=== PATIENT | male | born 1970 | race Two or more races ===

== ENCOUNTER 2016-10-27 09:48 | Emergency (ER) | payer SELFPAY ==
[~2016-10-27] VITALS: Ht 177.8 cm; Wt 136.1 kg
[~2016-10-27 09:48] MED LIST: ASPI325T11 PO; BENZ100C PO; DOXY100T PO; FENO54TA PO; FLUT12AE IH; FLUT9.9S NS; IBUP-1027 PO; IPRA4AER IH; METO25TA4 PO; PROAIR HFA8.5 GM IH
[2016-10-27 12:00] VITALS: BP 141/82
--- NOTE | 2016-10-27 12:53 | RAD ---
EXAM: Chest, 2 views. HISTORY: Cough. COMPARISON: 10/20/2016. FINDINGS: Frontal and lateral views of the chest are obtained. There is no infiltrate, effusion or pneumothorax. The heart is normal in size. IMPRESSION: No acute pulmonary finding.
[2016-10-27] MEDS ORDERED: IPRATRPIUM/ALBUTEROL 0.5/2.5MG 3 ML NEBU. NEB ONE (13:00)
[2016-10-27] MEDS ORDERED: BENZONATATE 100 MG CAPSULE. PO ONE (13:00)
[2016-10-27] MEDS ORDERED: PREDNISONE 20 MG TABLET PO ONE (13:00)
[2016-10-27] MEDS ORDERED: PRED50TA PO (13:46)
[2016-10-27] MEDS ORDERED: CLAR500T PO (13:46)
[2016-10-27] MEDS ORDERED: PROAIR RESPICL90 MCG IH (13:46)
[2016-10-27] MEDS ORDERED: PROM118S3 PO (13:46)
--- NOTE | 2016-10-27 13:47 | PHYS DOC ---
Past Medical History Past Medical History: Arthritis, Asthma, High Cholesterol, Hypertension Past Surgical History: No Surgical History Alcohol Use: None Drug Use: None Adult General Chief Complaint Chief Complaint: COUGH HPI HPI Patient is a 46 year old male with history of asthma, hypertension, high cholesterol, who presents today with a productive cough with green sputum, sore throat, shortness of breath intermittently for the last 3 weeks. Patient denies any fever. Patient himself is requesting antibiotics. He states he was seen in the ED on October 20, 2016 for the same complaints and the given cough medicine and breathing treatments which he states are not helping. Patient states he has subjective fevers at home. Review of Systems Review of Systems Constitutional: Subjective fevers Eyes: Denies change in visual acuity, redness, or eye pain [] HENT: sore throat [] Respiratory: Cough and shortness of breath [] Cardiovascular: No additional information not addressed in HPI [] GI: Denies abdominal pain, nausea, vomiting, bloody stools or diarrhea [] : Denies dysuria or hematuria [] Musculoskeletal: Denies back pain or joint pain [] Integument: Denies rash or skin lesions [] Neurologic: Denies headache, focal weakness or sensory changes [] Endocrine: Denies polyuria or polydipsia [] Current Medications Current Medications Current Medications Medications (Trade) Dose Ordered Sig/Jhon Start Time Stop Time Status Last Admin Dose Admin Albuterol/ Ipratropium (Duoneb) 3 ml 1X ONCE 10/27/16 13:00 10/27/16 13:01 DC 10/27/16 13:02 3 ML Benzonatate (Tessalon Perle) 100 mg 1X ONCE 10/27/16 13:00 10/27/16 13:01 DC 10/27/16 12:55 100 MG Prednisone (Prednisone) 60 mg 1X ONCE 10/27/16 13:00 10/27/16 13:01 DC 10/27/16 12:56 60 MG Allergies Allergies Allergies Coded Allergies Type Severity Reaction Last Updated Verified No Known Drug Allergies 10/30/13 No Physical Exam Physical Exam Constitutional: Well developed, well nourished, no acute distress, non-toxic appearance. [] HENT: Normocephalic, atraumatic, bilateral external ears normal, oropharynx moist, no oral exudates, nose normal. [] Eyes: PERRLA, EOMI, conjunctiva normal, no discharge. [] Neck: Normal range of motion, no tenderness, supple, no stridor. [] Cardiovascular:Heart rate regular rhythm, no murmur [] Lungs & Thorax: Bilateral breath sounds clear to auscultation [] Abdomen: Bowel sounds normal, soft, no tenderness, no masses, no pulsatile masses. [] Skin: Warm, dry, no erythema, no rash. [] Back: No tenderness, no CVA tenderness. [] Extremities: No tenderness, no cyanosis, no clubbing, ROM intact, no edema. [] Neurologic: Alert and oriented X 3, normal motor function, normal sensory function, no focal deficits noted. [] Psychologic: Affect normal, judgement normal, mood normal. [] Current Patient Data Vital Signs Vital Signs Date Time Temp Pulse Resp B/P Pulse Ox O2 Delivery O2 Flow Rate FiO2 10/27/16 13:02 Room Air 10/27/16 12:00 98.2 72 22 141/82 96 98.2 EKG EKG [] Radiology/Procedures Radiology/Procedures [] Course & Med Decision Making Course & Med Decision Making Pertinent Labs and Imaging studies reviewed. (See chart for details) Patient is in the ED with a productive cough, shortness of breath, for the last 3 weeks. He was seen in the ED on October 20, 2016 with the same complaints. Chest x-ray interpreted by radiologist is negative for any acute findings. O2 sats are 96% on room air. He is in no distress. He was given a DuoNeb treatment and started on prednisone. Patient has been sick for 3 weeks. Patient himself is requesting antibiotics stating his symptoms are gone on for too long. He was given a prescription for clarithromycin, albuterol treatments, prednisone for 4 more days, and codeine with promethazine. He is to follow-up with his own PCP in the next 7 days. Dragon Disclaimer Dragon Disclaimer This electronic medical record was generated, in whole or in part, using a voice recognition dictation system. Departure Departure Impression: Primary Impression: URI (upper respiratory infection) Additional Impressions: Acute bronchitis Fever Disposition: 01 HOME, SELF-CARE Condition: STABLE Referrals: ZELDA VALENZUELA MD (PCP) Follow-up with your own doctor in the next 7 days Patient Instructions: Acute Bronchitis, [id number], Upper Respiratory Infection, Adult Additional Instructions: You were seen with symptoms consistent with an acute bronchitis. Use the prescribed medicines as ordered. Follow-up with your doctor in one week. Come back to the emergency room if symptoms worsen. Scripts Promethazine/Phenyleph/Codeine (Promethazine Vc-Codeine Syrup)473 Ml Syrup5 Ml PO Q6HRS #100 ML Prov:DEVENDRA FLORES APRN 10/27/16 Clarithromycin 500 Mg Tablet1 Tab PO BID #14 TAB Prov:DEVENDRA FLORES APRN 10/27/16 Prednisone 50 Mg Tablet1 Tab PO DAILY #4 TAB Prov:DEVENDRA FLORES APRN 10/27/16 Albuterol Sulfate (Proair Respiclick)90 Mcg Aer.pow.ba1 Puff IH PRN Q6HRS PRN SHORTNESS OF BREATH #1 INHALER Prov:DEVENDRA FLORES APRN 10/27/16 Problem Qualifiers Primary Impression: URI (upper respiratory infection) URI type: unspecified URI Qualified Code: J06.9 - Acute upper respiratory infection, unspecified Additional Impressions: Acute bronchitis Bronchitis organism: unspecified organism Qualified Code: J20.9 - Acute bronchitis, unspecified Fever Fever type: unspecified Qualified Code: R50.9 - Fever, unspecified DEVENDRA FLORES LM Oct 27, 2016 13:47
== END 2016-10-27 14:00 | disposition home or self-care (01) ==
LOC: ER 09:48
DX: J06.9 Acute upper respiratory infection, unspecified (principal); J20.9 Acute bronchitis, unspecified; R50.9 Fever, unspecified; J45.909 Unspecified asthma, uncomplicated; I10 Essential (primary) hypertension; E78.00 Pure hypercholesterolemia, unspecified; M19.90 Unspecified osteoarthritis, unspecified site
CPT/HCPCS: 71020; 94250; 94640; 99284; J7512; J7620

== ENCOUNTER 2016-11-10 20:11 | Emergency (ER) | payer MEDICAID, OTHER ==
[~2016-11-10] VITALS: Ht 180.3 cm; Wt 136.1 kg
[~2016-11-10 20:11] MED LIST changes: +CLAR500T PO; +PRED50TA PO; +PROAIR RESPICL90 MCG IH; +PROM118S3 PO
[2016-11-10 20:21] VITALS: BP 167/119
[2016-11-10] MEDS ORDERED: FLUT9.9S NS (21:02)
[2016-11-10] MEDS ORDERED: PROAIR RESPICL90 MCG IH (21:02)
--- NOTE | 2016-11-10 21:02 | PHYS DOC ---
Past Medical History Past Medical History: Arthritis, Asthma, High Cholesterol, Hypertension Past Surgical History: No Surgical History Alcohol Use: None Drug Use: None Adult General Chief Complaint Chief Complaint: COUGH HPI HPI Patient is a 46 year old male with history of asthma hypertension high cholesterol who presents today with coughing, productive in nature with greenish sputum, nasal congestion that began 3 weeks ago. Patient was seen in the ED 2016 with similar complaints, he was also seen in the ED on October 27, 2016 with similar complaints and was given antibiotics. Patient has had 2 negative x-rays in the last 25 days. He is in the ED with 2 other family members with similar complaints. Patient denies any fever. Review of Systems Review of Systems Constitutional: Denies fever or chills [] Eyes: Denies change in visual acuity, redness, or eye pain [] HENT: nasal congestion Respiratory: Productive cough Cardiovascular: No additional information not addressed in HPI [] GI: Denies abdominal pain, nausea, vomiting, bloody stools or diarrhea [] : Denies dysuria or hematuria [] Musculoskeletal: Denies back pain or joint pain [] Integument: Denies rash or skin lesions [] Neurologic: Denies headache, focal weakness or sensory changes [] Endocrine: Denies polyuria or polydipsia [] Allergies Allergies Allergies Coded Allergies Type Severity Reaction Last Updated Verified No Known Drug Allergies 10/30/13 No Physical Exam Physical Exam Constitutional: Well developed, well nourished, no acute distress, non-toxic appearance. [] HENT: Normocephalic, atraumatic, bilateral external ears normal, oropharynx moist, no oral exudates, nose normal. [] Eyes: PERRLA, EOMI, conjunctiva normal, no discharge. [] Neck: Normal range of motion, no tenderness, supple, no stridor. [] Cardiovascular:Heart rate regular rhythm, no murmur [] Lungs & Thorax: Bilateral breath sounds clear to auscultation [] Abdomen: Bowel sounds normal, soft, no tenderness, no masses, no pulsatile masses. [] Skin: Warm, dry, no erythema, no rash. [] Back: No tenderness, no CVA tenderness. [] Extremities: No tenderness, no cyanosis, no clubbing, ROM intact, no edema. [] Neurologic: Alert and oriented X 3, normal motor function, normal sensory function, no focal deficits noted. [] Psychologic: Affect normal, judgement normal, mood normal. [] Current Patient Data Vital Signs Vital Signs Date Time Temp Pulse Resp B/P Pulse Ox O2 Delivery O2 Flow Rate FiO2 11/10/16 20:21 98.0 94 18 96 Room Air 98.0 EKG EKG [] Radiology/Procedures Radiology/Procedures [] Course & Med Decision Making Course & Med Decision Making Pertinent Labs and Imaging studies reviewed. (See chart for details) As noted previously this patient is in the ED with a productive cough and nasal congestion for 3 weeks. Patient was seen in the ED on October 20 for same symptoms as well as 2016 for same symptoms and had negative x-rays both times. He is in no distress. Symptoms are viral. Discharge him today with albuterol treatments and Flonase. Discharged with Tessalon Perlgarret. Instructed follow up with his own PCP in the next 7 days. He was provided return precautions and discharged in stable condition. Dragon Disclaimer Dragon Disclaimer This electronic medical record was generated, in whole or in part, using a voice recognition dictation system. Departure Departure Impression: Primary Impression: Cough Additional Impressions: Acute viral bronchitis Upper respiratory infection Disposition: HOME, SELF-CARE Condition: STABLE Referrals: ZELDA VALENZUELA MD (PCP) Follow-up with your own doctor in one week Patient Instructions: Acute Bronchitis, Upper Respiratory Infection, Adult Additional Instructions: You were seen with symptoms consistent of a viral bronchitis and upper respiratory infection. Take the prescribed medicines as ordered. Follow-up with your own doctor in one week. Come back to the emergency room if symptoms worsen. Scripts Fluticasone Propionate (Flonase Allergy Relief)9.9 Ml [place].susp2 Sprays NS DAILY #1 BOTTLE Prov:DEVENDRA FLORES APRN 11/10/16 Albuterol Sulfate (Proair Respiclick)90 Mcg Aer.pow.ba1 Puff IH PRN Q6HRS PRN SHORTNESS OF BREATH #1 INHALER Prov:DEVENDRA FLORES APRN 11/10/16 Problem Qualifiers Additional Impressions: Upper respiratory infection URI type: unspecified URI Qualified Code: J06.9 - Acute upper respiratory infection, unspecified DEVENDRA FLORES APRN Nov 10, 2016 21:02
== END 2016-11-10 21:10 | disposition home or self-care (01) ==
LOC: ER 20:11
DX: J20.8 Acute bronchitis due to other specified organisms (principal); J06.9 Acute upper respiratory infection, unspecified; J45.909 Unspecified asthma, uncomplicated; I10 Essential (primary) hypertension; E78.00 Pure hypercholesterolemia, unspecified; M19.90 Unspecified osteoarthritis, unspecified site
CPT/HCPCS: 99283

== ENCOUNTER → 2017-01-07 | Outpatient (CLI) | payer OTHER ==
--- NOTE | 2017-01-07 16:38 | KCIC ---
PROCEDURE MR of the right knee HISTORY Right knee pain, chronic. Pain is anteromedial. TECHNIQUE Standard noncontrast images are obtained. COMPARISON None FINDINGS Degenerative tear of the medial meniscus with extrusion of tissue into the coronary recess. No evidence of a lateral meniscal tear. The anterior and posterior cruciate ligaments are intact. Medial collateral ligament demonstrates proximal scarring without acute tear. Iliotibial band unremarkable. Fibular collateral ligament, biceps femoris tendon and popliteus tendon are intact. Extensor mechanism is intact. Small joint effusion. No evidence of osteochondral loose body. Motion degradation may limit accuracy of articular cartilage exam, but there is at least moderate chondromalacia at the medial compartment and at least mild lateral compartment chondromalacia. Severe chondromalacia at the patella and at least moderate chondromalacia at the femoral trochlea. No bone lesion. No acute fracture. Mild subcutaneous edema. No significant Lemon cyst. IMPRESSION 1. Medial meniscal tear. 2. Primary osteoarthritis. Electronically signed by: Orlando Rae MD (Jan 07, 2017 16:37:06)
--- NOTE | 2017-01-07 16:57 | KCIC ---
PROCEDURE MR of the left knee HISTORY Left knee pain. Pain is chronic. Pain is anteromedial. TECHNIQUE Standard noncontrast images are obtained. COMPARISON FINDINGS Sshb-cn-czvvtzva motion degradation. Degenerative tear of the medial meniscus. Meniscus is extruded into the coronary recess. No evidence of a lateral meniscal tear. The anterior and the posterior cruciate ligaments are intact. Medial collateral ligament is intact. Iliotibial band unremarkable. Fibular collateral ligament, biceps femoris tendon and popliteus tendon are intact. Trace joint fluid. No evidence of osteochondral loose body. At least moderate chondromalacia at the medial joint. At least mild lateral compartment chondromalacia. Severe chondromalacia of the patella and at the lower femoral trochlea. No acute fracture or aggressive bone destruction. No significant Lemon cyst. There is a cyst or ganglion along the posteromedial knee. This may be associated with the meniscal tear. IMPRESSION 1. Medial meniscal tear, with displacement and parameniscal cyst. 2. Primary osteoarthritis. Electronically signed by: Orlando Rea MD (Jan 07, 2017 16:55:40)
== END | disposition home or self-care (01) ==
LOC: KCIC MRI 15:15
PROVIDERS: ATTEND Orthopaedic Surgery Sports Medicine
DX: M25.562 Pain in left knee (principal); M17.12 Unilateral primary osteoarthritis, left knee
CPT/HCPCS: 73721

== ENCOUNTER 2017-09-09 08:57 | Emergency (ER) | payer BC, OTHER ==
[~2017-09-09] VITALS: Ht 177.8 cm; Wt 136.1 kg
[~2017-09-09 08:57] MED LIST changes: +ALBU2.5V5 NEB; +ATOR10TA60 PO; +FLUT16SP NS; +FLUT1DIS3 IH; +IPRA3AMP NEB; +METO50TA6 PO; +OMEP20TA63 PO
[2017-09-09] MEDS ORDERED: IPRATRPIUM/ALBUTEROL 0.5/2.5MG 3 ML NEBU. NEB ONE (09:30)
[2017-09-09] MEDS ORDERED: methylPREDNISolone SOD SUCC PF 125 MG/2 ML VIAL. IV ONE (09:30)
--- NOTE | 2017-09-09 09:31 | PHYS DOC ---
Past Medical History Past Medical History: Asthma, High Cholesterol, Hypertension, Other Additional Past Medical Histor: HEYDI KNEE PAIN Past Surgical History: No Surgical History Alcohol Use: None Drug Use: None Adult General Chief Complaint Chief Complaint: ASTHMA HPI HPI Patient is a 47 year old male presents to the emergency department with a month history of cough, congestion, fever and wheezing. He had been seen by his PCP and placed on Cipro and duoneb with minimal relief. Patient presents today with increase SOA and wheezing, fever and elevated BP. Patient denies lower leg swelling, denies chest pain, denies productive cough. Review of Systems Review of Systems Constitutional: fever Eyes: Denies change in visual acuity, redness, or eye pain [] HENT: Denies nasal congestion or sore throat [] Respiratory: cough and shortness of breath [] Cardiovascular: No additional information not addressed in HPI [] GI: Denies abdominal pain, nausea, vomiting, bloody stools or diarrhea [] : Denies dysuria or hematuria [] Musculoskeletal: Denies back pain or joint pain [] Integument: Denies rash or skin lesions [] Neurologic: Denies headache, focal weakness or sensory changes [] Endocrine: Denies polyuria or polydipsia [] All other systems were reviewed and found to be within normal limits, except as documented in this note. Current Medications Current Medications Current Medications Medications (Trade) Dose Ordered Sig/Jhon Start Time Stop Time Status Last Admin Dose Admin Albuterol/ Ipratropium (Duoneb) 3 ml 1X ONCE 09/09/17 09:30 09/09/17 09:31 DC 09/09/17 10:03 3 ML Methylprednisolone Sodium Succinate (SOLU-Medrol 125MG VIAL) 125 mg 1X ONCE 09/09/17 09:30 09/09/17 09:31 DC 09/09/17 09:45 125 MG Allergies Allergies Allergies Coded Allergies Type Severity Reaction Last Updated Verified No Known Drug Allergies 10/30/13 No Physical Exam Physical Exam Constitutional: Well developed, well nourished, no acute distress, non-toxic appearance. [] HENT: Normocephalic, atraumatic, bilateral external ears normal, oropharynx moist, no oral exudates, nose normal. [] Eyes: PERRLA, EOMI, conjunctiva normal, no discharge. [] Neck: Normal range of motion, no tenderness, supple, no stridor. [] Cardiovascular:Heart rate regular rhythm, no murmur [] Lungs & Thorax: Bilateral breath sounds wheezes noted Back: No tenderness, no CVA tenderness. [] Extremities: No tenderness, no cyanosis, no clubbing, ROM intact, no edema. [] Neurologic: Alert and oriented X 3, normal motor function, normal sensory function, no focal deficits noted. [] Psychologic: Affect normal, judgement normal, mood normal. [] Current Patient Data Vital Signs Vital Signs Date Time Temp Pulse Resp B/P (MAP) Pulse Ox O2 Delivery O2 Flow Rate FiO2 09/09/17 10:05 95 Room Air 09/09/17 09:08 98.1 89 18 185/98 (127) 98.1 Lab Values Laboratory Tests Test 09/09/17 09:33 09/09/17 09:36 Influenza Type A Antigen Negative (NEGATIVE) Influenza Type B Antigen Negative (NEGATIVE) White Blood Count 6.4 x10^3/uL (4.0-11.0) Red Blood Count 5.15 x10^6/uL (4.30-5.70) Hemoglobin 14.8 g/dL (13.0-17.5) Hematocrit 44.2 % (39.0-53.0) Mean Corpuscular Volume 86 fL (79-100) Mean Corpuscular Hemoglobin 29 pg (25-35) Mean Corpuscular Hemoglobin Concent 34 g/dL (31-37) Red Cell Distribution Width 13.3 % (11.5-14.5) Platelet Count 193 x10^3/uL (140-400) Neutrophils (%) (Auto) 44 % (31-73) Lymphocytes (%) (Auto) 37 % (24-48) Monocytes (%) (Auto) 14 % (0-9) H Eosinophils (%) (Auto) 4 % (0-3) H Basophils (%) (Auto) 1 % (0-3) Neutrophils # (Auto) 2.8 x10^3uL (1.8-7.7) Lymphocytes # (Auto) 2.4 x10^3/uL (1.0-4.8) Monocytes # (Auto) 0.9 x10^3/uL (0.0-1.1) Eosinophils # (Auto) 0.2 x10^3/uL (0.0-0.7) Basophils # (Auto) 0.0 x10^3/uL (0.0-0.2) Sodium Level 137 mmol/L (136-145) Potassium Level 4.0 mmol/L (3.5-5.1) Chloride Level 101 mmol/L (98-107) Carbon Dioxide Level 27 mmol/L (21-32) Anion Gap 9 (6-14) Blood Urea Nitrogen 15 mg/dL (8-26) Creatinine 1.0 mg/dL (0.7-1.3) Estimated GFR (Cockcroft-Gault) 79.8 BUN/Creatinine Ratio 15 (6-20) Glucose Level 104 mg/dL (70-99) H Calcium Level 9.1 mg/dL (8.5-10.1) Total Bilirubin 0.4 mg/dL (0.2-1.0) Aspartate Amino Transferase (AST) 20 U/L (15-37) Alanine Aminotransferase (ALT) 32 U/L (16-63) Alkaline Phosphatase 83 U/L (46-116) FW-Muh-K-Type Natriuretic Peptide 6 pg/mL (0-124) Total Protein 7.5 g/dL (6.4-8.2) Albumin 3.8 g/dL (3.4-5.0) Albumin/Globulin Ratio 1.0 (1.0-1.7) Laboratory Tests 09/09/17 09:36 Laboratory Tests 09/09/17 09:36 EKG EKG EKG completed at 0928 with SR noted HR [address] Sandoval[] Radiology/Procedures Radiology/Procedures [] Course & Med Decision Making Course & Med Decision Making Pertinent Labs and Imaging studies reviewed. (See chart for details) [address] Barrow in regards to patient being admitted into the hospital as he has been on Cipro 1 month ago and continue to have respiratory problems. Dr Barrow recommends that this patient be sent home on doxycycline and prednisone with followup on Tuesday. Patients O2 sat on RA 95% with BP slightly elevated. 1053 Spoke with patient in regards to being discharged home with the above medications. Patient was recommended to followup with primary care provider on Tuesday. Patient was provided with signs and symptoms to return to the emergency department. All questions and concerns have been answered at the bedside. I've spoken with the patient and/or caregivers. I've explained the patient's condition, diagnosis and treatment plan based on information available to me at this time. I've answered the patient's and/or caregivers questions and addressed any concerns. The patient and/or caregivers have a good understanding the patient's diagnosis, condition and treatment plan as can be expected at this point. Vital signs have been stabilized. The patient's condition is stable for discharge from the emergency department. The patient will pursue further outpatient evaluation with her primary care provider or other designated consulting physician as outlined in the discharge instructions. Patient and/or caregivers are agreeable to this plan of care and follow-up instructions have been explained in detail. The patient and/or caregivers have received these instructions in written format and expressed understanding of these discharge instructions. The patient and her caregivers are aware that if any significant change in condition or worsening of symptoms should prompt him to immediately return to this of the closest emergency department.~ If an emergent department is not readily available I would encourage him to call 911. Yves Disclaimer Dragon Disclaimer This electronic medical record was generated, in whole or in part, using a voice recognition dictation system. Departure Departure Impression: Primary Impression: CAP (community acquired pneumonia) Disposition: HOME, SELF-CARE Condition: STABLE Referrals: ZELDA VALENZUELA MD (PCP) Patient Instructions: Pneumonia, Adult, [id number] Additional Instructions: Activity as tolerated Medication as prescribed Tylenol or Ibuprofen for fever, chills, or generalized body aches Continue with your nebulizer treatments as prescribed Drink plenty of fluids Followup with your primary care provider Tuesday Return to emergency department as needed for signs and symptoms that become worse. Scripts Prednisone (PREDNISONE) 20 Mg Tablet 40 MG PO DAILY for 7 Days, #14 TAB Prov: FILIPPO BOSWELL APRN 09/09/17 Doxycycline Hyclate (DOXYCYCLINE HYCLATE) 100 Mg Capsule 1 CAP PO BID, #20 CAP Prov: FILIPPO BOSWELL APRN 09/09/17 Problem Qualifiers Primary Impression: CAP (community acquired pneumonia) Laterality: unspecified laterality Qualified Codes: J18.9 - Pneumonia, unspecified organism FILIPPO BOSWELL APRN Sep 09, 2017 09:31
--- NOTE | 2017-09-09 09:54 | EKG ---
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
[2017-09-09 09:57] LABS: BASO % 1 % (0-3); EOS % 4 % (0-3); HEMATOCRIT 44.2 % (39.0-53.0); HEMOGLOBIN 14.8 g/dL (13.0-17.5); LYMPH # 2.4 x10^3/uL (1.0-4.8); LYMPH % 37 % (24-48); MEAN CORPUSCULAR HEMOGLOBIN 29 pg (25-35); MEAN CORPUSCULAR HGB CONC 34 g/dL (31-37); MEAN CORPUSCULAR VOLUME 86 fL (79-100); MONO % 14 % (0-9); NEUT % 44 % (31-73); PLATELET COUNT 193 x10^3/uL (140-400); RED BLOOD COUNT 5.15 x10^6/uL (4.30-5.70); RED CELL DISTRIBUTION WIDTH 13.3 % (11.5-14.5); WHITE BLOOD COUNT 6.4 x10^3/uL (4.0-11.0)
[2017-09-09 09:58] LABS: CALCIUM 9.1 mg/dL (8.5-10.1); GFR 79.8
[2017-09-09 10:04] LABS: ALBUMIN 3.8 g/dL (3.4-5.0); TOTAL BILIRUBIN 0.4 mg/dL (0.2-1.0); TOTAL PROTEIN 7.5 g/dL (6.4-8.2)
--- NOTE | 2017-09-09 10:15 | RAD ---
EXAM: Chest 2 views. HISTORY: Chest pain, shortness of breath, cough. COMPARISON: None. FINDINGS: Frontal and lateral views of the chest are obtained. There is mild atelectasis or infiltrate in the right cardiophrenic angle. There is no pneumothorax or pleural effusion. The heart is not enlarged. IMPRESSION: 1. Mild atelectasis or infiltrate in the right cardiophrenic angle.
[2017-09-09 10:16] LABS: OBC FLU VALID
[2017-09-09] MEDS ORDERED: DOXY100C2 PO (10:58)
[2017-09-09] MEDS ORDERED: PRED20TA PO (10:58)
[2017-09-09 11:36] VITALS: BP 133/74
== END 2017-09-09 11:38 | disposition home or self-care (01) ==
LOC: ER 08:57
DX: J18.9 Pneumonia, unspecified organism (principal); J45.909 Unspecified asthma, uncomplicated; E78.00 Pure hypercholesterolemia, unspecified; I10 Essential (primary) hypertension
CPT/HCPCS: 36415; 71020; 80053; 83880; 85025; 87804; 93005; 96374; 99285; J2930; J7620

== ENCOUNTER 2018-05-06 03:53 | Inpatient (IN) | payer OTHER ==
[2018-05-06] MEDS ORDERED: dilTIAZem IV PUSH 25 MG/5 ML VIAL (04:05)
[2018-05-06] MEDS: NITROGLYCERIN SUBLINGUAL 0.4 MG BOTTLE OF 25. SL (04:12)
[2018-05-06] MEDS: dilTIAZem IV PUSH 25 MG/5 ML VIAL IVP ×2 (04:14→04:20)
[2018-05-06 04:17] LABS: ADD MAN DIFF? NO
[2018-05-06 04:20] LABS: BASO # 0.1 x10^3/uL (0.0-0.2); BASO % 1 % (0-3); EOS # 0.2 x10^3/uL (0.0-0.7); EOS % 3 % (0-3); HEMOGLOBIN 15.8 g/dL (13.0-17.5); LYMPH # 3.4 x10^3/uL (1.0-4.8); LYMPH % 43 % (24-48); MEAN CORPUSCULAR HEMOGLOBIN 30 pg (25-35); MEAN CORPUSCULAR HGB CONC 34 g/dL (31-37); MEAN CORPUSCULAR VOLUME 86 fL (79-100); MONO # 0.8 x10^3/uL (0.0-1.1); MONO % 10 % (0-9); NEUT # 3.6 x10^3uL (1.8-7.7); NEUT % 44 % (31-73); PLATELET COUNT 188 x10^3/uL (140-400); RED BLOOD COUNT 5.35 x10^6/uL (4.30-5.70); RED CELL DISTRIBUTION WIDTH 13.3 % (11.5-14.5)
[2018-05-06] MEDS: dilTIAZem INJ 125 MG in IV DEXTROSE 5% 100ML 100 ML IV ×2 (04:29→17:34)
[2018-05-06 04:32] LABS: ANION GAP 7 (6-14); BLOOD UREA NITROGEN 13 mg/dL (8-26); CALCIUM 8.9 mg/dL (8.5-10.1); CARBON DIOXIDE 30 mmol/L (21-32); CHLORIDE 102 mmol/L (98-107); CREATININE 1.1 mg/dL (0.7-1.3); GFR 71.1; GLUCOSE 119 mg/dL (70-99); POTASSIUM 4.4 mmol/L (3.5-5.1); SODIUM 139 mmol/L (136-145)
[2018-05-06 04:41] LABS: TROPONINI < 0.017 ng/mL (0.000-0.055)
[2018-05-06 04:43] LABS: NT-PRO BNP 12 pg/mL (0-124)
[2018-05-06] MEDS ORDERED: ACETAMINOPHEN 325 MG TABLET. PO (04:45)
[2018-05-06] MEDS ORDERED: MORPHINE SULFATE 4 MG/ML DISP.SYRIN. IV (04:45)
[2018-05-06] MEDS: MORPHINE SULFATE 4 MG/ML DISP.SYRIN. IV (04:45)
[2018-05-06] MEDS ORDERED: ONDANSETRON PF 4 MG/2 ML VIAL. IV (04:45)
[2018-05-06] MEDS ORDERED: NITROGLYCERIN SUBLINGUAL 0.4 MG BOTTLE OF 25. SL (04:45)
[2018-05-06] MEDS: IV NORMAL SALINE 1000ML BAG 1,000 ML IV (05:00)
[2018-05-06] MEDS: ANTI-COAG MONITOR BY PHARMACY. MC ×2 (06:44→09:24)
[2018-05-06] MEDS: HEPARIN for IV BOLUS 10,000 UNIT/10 ML VIAL. IV (06:44)
[2018-05-06] MEDS: HEPARIN 25,000UTS/500ML PREMIX 500 ML IV (06:47)
[2018-05-06 07:48] LABS: INR 0.9 (0.8-1.1); PARTIAL THROMBOPLASTIN TIME 28 SEC (24-38)
[2018-05-06] MEDS: BUDESONIDE 0.5 MG/2 ML NEBU. NEB ×4 (12:00→19:38)
[2018-05-06] MEDS: ALBUTEROL SULFATE 2.5 MG/3 ML NEBU. NEB ×3 (12:00→19:38)
[2018-05-06] MEDS: CETIRIZINE HCL 10 MG TABLET. PO (12:47)
[2018-05-06] MEDS: ASPIRIN ENTERIC COATED 325 MG TABLET.DR. PO (12:47)
[2018-05-06] MEDS: FLUTICASONE 50MCG/NASAL SPRAY 16GM BOTTLE. NS (13:01)
[2018-05-06] MEDS: METOPROLOL TART IMMED RELEASE 50 MG TABLET. PO ×2 (15:53→21:23)
[2018-05-06] MEDS ORDERED: dilTIAZem INJ 125 MG in IV DEXTROSE 5% 100ML 100 ML IV (17:15)
[2018-05-06] MEDS: MONTELUKAST SODIUM 10 MG TABLET. PO (21:23)
[2018-05-06] MEDS: ATORVASTATIN CALCIUM 20 MG TABLET PO (21:23)
[2018-05-06] MEDS: APIXABAN 5 MG TABLET. PO (21:23)
[2018-05-07] MEDS: ALBUTEROL SULFATE 2.5 MG/3 ML NEBU. NEB ×3 (08:30→16:14)
[2018-05-07] MEDS: BUDESONIDE 0.5 MG/2 ML NEBU. NEB (08:30)
[2018-05-07] MEDS: APIXABAN 5 MG TABLET. PO (08:58)
[2018-05-07] MEDS: CETIRIZINE HCL 10 MG TABLET. PO (08:58)
[2018-05-07] MEDS: DIGOXIN 125 MCG TABLET. PO (08:58)
[2018-05-07] MEDS: ASPIRIN ENTERIC COATED 325 MG TABLET.DR. PO (08:58)
[2018-05-07] MEDS: METOPROLOL TART IMMED RELEASE 50 MG TABLET. PO (08:59)
[2018-05-07] MEDS: FLUTICASONE 50MCG/NASAL SPRAY 16GM BOTTLE. NS (09:00)
[2018-05-07] MEDS: ANTI-COAG MONITOR BY PHARMACY. MC (13:09)
== END 2018-05-07 18:53 | disposition home or self-care (01) | DRG 309 ==
LOC: ER 03:53 → 2 SOUTH 04:30
DX: I48.0 Paroxysmal atrial fibrillation (principal); Z68.42 Body mass index [BMI] 45.0-49.9, adult; E66.9 Obesity, unspecified; E78.00 Pure hypercholesterolemia, unspecified; E78.5 Hyperlipidemia, unspecified; G47.33 Obstructive sleep apnea (adult) (pediatric); I10 Essential (primary) hypertension; M19.90 Unspecified osteoarthritis, unspecified site; J45.909 Unspecified asthma, uncomplicated; Z83.3 Family history of diabetes mellitus; Z82.49 Family history of ischemic heart disease and other diseases of the circulatory system; Z79.82 Long term (current) use of aspirin; Z79.899 Other long term (current) drug therapy
CPT/HCPCS: 36415; 71045; 80048; 83880; 84484; 85025; 85520; 85610; 85730; 93005; 93306; 94640; 94760; 96365; 96375; 99285; 99285-25; J1644; J2270; J3490; J7030; J7613; J7626

== ENCOUNTER → 2019-01-02 | Outpatient (CLI) | payer OTHER ==
[2018-05-07 15:16] VITALS: BP 142/86
[~2019-01-02] MED LIST changes: +ALBU2.5V8 IH; +APIX5TAB PO; +ASPI325T8 PO; +ASPI81TA50 PO; +ATOR20TA58 PO; +AZIT1PAC PO; +CETI10TA16 PO; +DIGO125T PO; +DILT180C29 PO; +DOXY100C2 PO; +ERGO500027 PO; +HYDR12.575 PO; +IBUP-1060 PO; -IPRA3AMP NEB; +IPRA3AMP29 NEB; +MONT10TA9 PO; +OMEP20CA10 PO; +PRED-220 PO; +PRED20TA PO; -PROAIR HFA8.5 GM IH; +TRAM-48 PO; +vit d PO
[2019-01-02 11:31] LABS: BASO # 0.1 x10^3/uL (0.0-0.2); BASO % 1 % (0-3); EOS # 0.3 x10^3/uL (0.0-0.7); EOS % 3 % (0-3); HEMATOCRIT 44.7 % (39.0-53.0); HEMOGLOBIN 14.8 g/dL (13.0-17.5); LYMPH # 3.3 x10^3/uL (1.0-4.8); LYMPH % 35 % (24-48); MEAN CORPUSCULAR HEMOGLOBIN 28 pg (25-35); MEAN CORPUSCULAR HGB CONC 33 g/dL (31-37); MEAN CORPUSCULAR VOLUME 85 fL (79-100); MONO % 10 % (0-9); NEUT # 4.9 x10^3uL (1.8-7.7); NEUT % 51 % (31-73); PLATELET COUNT 194 x10^3/uL (140-400); RED BLOOD COUNT 5.25 x10^6/uL (4.30-5.70); RED CELL DISTRIBUTION WIDTH 13.1 % (11.5-14.5); WHITE BLOOD COUNT 9.5 x10^3/uL (4.0-11.0)
[2019-01-02 11:58] LABS: ALBUMIN 3.7 g/dL (3.4-5.0); CALCIUM 8.9 mg/dL (8.5-10.1); CREATININE 0.9 mg/dL (0.7-1.3); GFR 89.7; POTASSIUM 4.1 mmol/L (3.5-5.1)
== END | disposition home or self-care (01) ==
LOC: SURGPAT 10:17
PROVIDERS: ATTEND Surgery
DX: Z01.818 Encounter for other preprocedural examination (principal); K42.0 Umbilical hernia with obstruction, without gangrene
CPT/HCPCS: 36415; 80048; 82040; 85025

== ENCOUNTER 2019-01-08 08:02 | Day surgery (SDC) | payer OTHER ==
[~2019-01-08] VITALS: Ht 175.3 cm; Wt 144.2 kg
[~2019-01-08 08:02] MED LIST changes: +HYDROmorphone 2 MG/ML VIAL IV PRN; +IV RINGERS,LACTATED 1000ML 1,000 ML IV SCH; +LIDOCAINE 1% PF 2 ML VIAL. ID PRN; +ONDANSETRON PF 4 MG/2 ML VIAL. IV PRN; +PROCHLORPERAZINE 10 MG/2 ML VIAL. IV PRN; -TRAM-48 PO; +TRANEXAMIC ACID 1,000 MG in IV NORMAL SALINE 50ML 50 ML INJ ONE; +ceFAZolin SODIUM 3 GM in IV DEXTROSE 5% 100ML 100 ML IV PRN; +fentaNYL PF VIAL 100 MCG/2 ML VIAL IV PRN
[2019-01-08] MEDS ORDERED: DEXAMETHASONE SOD PHOS 20 MG/5 ML VIAL. ONE (08:35)
[2019-01-08] MEDS ORDERED: PROPOFOL 20 ML IV ONE (08:35)
[2019-01-08] MEDS ORDERED: LIDOCAINE 2% PF 5 ML VIAL. ONE (08:35)
[2019-01-08] MEDS ORDERED: ONDANSETRON PF 4 MG/2 ML VIAL. ONE (08:35)
[2019-01-08] MEDS ORDERED: ROCURONIUM 50 MG/5 ML VIAL. ONE (08:37)
[2019-01-08] MEDS ORDERED: fentaNYL PF VIAL 100 MCG/2 ML VIAL ONE (08:37)
[2019-01-08] MEDS ORDERED: SUCCINYLCHOLINE 200 MG/10 ML VIAL. ONE (08:37)
[2019-01-08] MEDS ORDERED: BUPIVAC MPF-EPI 0.5%-1:200000 30 ML VIAL. ONE (08:40)
[2019-01-08] MEDS ORDERED: PHENYLEPHRINE in 0.9% NACL PF 1 MG/10 ML SYRINGE. IV ONE (10:29)
[2019-01-08] MEDS ORDERED: NEOSTIGMINE METHYLSULFATE 5 MG/5 ML SYRINGE. ONE (10:39)
[2019-01-08] MEDS ORDERED: GLYCOPYRROLATE 1 MG/5 ML VIAL. ONE (10:39)
[2019-01-08] MEDS ORDERED: SEVOFLURANE 31 TO 60 MINUTES. IH ONE (10:56)
--- NOTE | 2019-01-08 11:02 | DISCH ---
DISCHARGE INSTRUCTIONS Condition on Discharge Condition on Discharge: Stable Activity After Discharge Activity Instructions for Disc: Activity as tolerated, Avoid exertion Lifting Instructions after Dis: No heavy lifting Exercise Instruction after Dis: Progress as tolerated Driving Instructions after Dis: Do not drive (3-4 days) Weight Bearing Status after Di: As tolerated Diet after Discharge Diet after Discharge: Cardiac Diet Texture: Regular Wound Incision Care Wound/Incision Care: Ice to area for comfort Other wound/incision instructi: february shower Tuesday, wear abdominal binder Checks after Discharge Checks after discharge: Check blood press - daily Follow-Up Follow up with: Devang next week Treatment/Equipment after DC Adaptive Equipment Issued: None YESSI MURILLO MD Jan 08, 2019 11:02
--- NOTE | 2019-01-08 11:08 | PDOC ---
BRIEF OPERATIVE NOTE Date: Jan 08, 2019 Pre-Op Diagnosis incarcerated umbilical hernia Post-Op Diagnosis same Procedure Performed primary repair Surgeon Devang Anesthesia Type: General Blood Loss 10cc IV Fluid 1000cc Specimens Obtained none Findings incarcerated pre peritoneal fat, small defect Complications none Operative Note WK # [id number] YESSI MURILLO MD Jan 08, 2019 11:08
--- NOTE | 2019-01-08 11:33 | OP ---
DATE OF SURGERY: 01/08/2019 PREOPERATIVE DIAGNOSIS: Incarcerated umbilical hernia. POSTOPERATIVE DIAGNOSIS: Incarcerated umbilical hernia. PROCEDURE: Primary repair. SURGEON: Yessi Murillo MD. ANESTHESIA: General endotracheal. BLOOD LOSS: 10 mL. INTRAVENOUS: 1 liter. INDICATIONS: The patient is a morbidly obese (BMI 47) male with an incarcerated umbilical hernia. OPERATIVE REPORT: The patient was brought to the operating suite, given a general endotracheal anesthetic and the abdomen prepped and draped in usual sterile fashion. An infraumbilical incision was infiltrated with local anesthetic, incised and dissection carried down to the anterior sheath. The hernia contents were encircled with careful blunt dissection. Rajinder drain placed around it. The umbilical skin was then freed from the underlying hernia contents. These were reduced and the small defect closed with interrupted inverted tuekri-dx-awxxy 0 PDS suture. A second row of 0 Vicryl was placed to reinforce the repair. Good hemostasis was present and a correct sponge count was obtained. The umbilical skin was tacked to the underlying repair with 3-0 Vicryl. Skin closed with a subcuticular 4-0 Monocryl. Steri-Strips and sterile dressing applied. Abdominal binder placed. The patient was awakened from his anesthetic and taken to the recovery room in satisfactory condition. YESSI MURILLO MD DR: DARIUS/nts JOB#: [id number] / [id number]
[2019-01-08] MEDS ORDERED: IBUPROFEN 400 MG TABLET. PO ONE (12:30)
[2019-01-08 13:15] VITALS: BP 146/76
== END 2019-01-08 13:20 | disposition home or self-care (01) ==
LOC: SURG 08:02
PROVIDERS: ATTEND Surgery
DX: K42.0 Umbilical hernia with obstruction, without gangrene (principal); E66.01 Morbid (severe) obesity due to excess calories; Z68.42 Body mass index [BMI] 45.0-49.9, adult; G47.30 Sleep apnea, unspecified; E78.5 Hyperlipidemia, unspecified; J45.909 Unspecified asthma, uncomplicated; I48.91 Unspecified atrial fibrillation; Z79.899 Other long term (current) drug therapy; Z79.82 Long term (current) use of aspirin; M17.0 Bilateral primary osteoarthritis of knee; Z98.890 Other specified postprocedural states; Z82.49 Family history of ischemic heart disease and other diseases of the circulatory system; Z82.5 Family history of asthma and other chronic lower respiratory diseases; Z88.5 Allergy status to narcotic agent
CPT/HCPCS: 49587; A7015; J0330; J1100; J2001; J2370; J2405; J2704; J2710; J3010; J3490

== ENCOUNTER 2019-02-08 06:33 | Emergency (ER) | payer OTHER ==
[~2019-02-08] VITALS: Ht 177.8 cm; Wt 146.1 kg
[~2019-02-08 06:33] MED LIST changes: -HYDROmorphone 2 MG/ML VIAL IV PRN; -IV RINGERS,LACTATED 1000ML 1,000 ML IV SCH; -LIDOCAINE 1% PF 2 ML VIAL. ID PRN; -ONDANSETRON PF 4 MG/2 ML VIAL. IV PRN; -PROCHLORPERAZINE 10 MG/2 ML VIAL. IV PRN; -TRANEXAMIC ACID 1,000 MG in IV NORMAL SALINE 50ML 50 ML INJ ONE; -ceFAZolin SODIUM 3 GM in IV DEXTROSE 5% 100ML 100 ML IV PRN; -fentaNYL PF VIAL 100 MCG/2 ML VIAL IV PRN
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
[2019-02-08 07:52] VITALS: BP 174/103
[2019-02-08] MEDS ORDERED: TRAM-48 PO (07:55)
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
== END 2019-02-08 08:10 | disposition home or self-care (01) ==
LOC: ER 06:33
DX: S16.1XXA Strain of muscle, fascia and tendon at neck level, initial encounter (principal); S09.90XA Unspecified injury of head, initial encounter; S86.912A Strain of unspecified muscle(s) and tendon(s) at lower leg level, left leg, initial encounter; M25.562 Pain in left knee; I10 Essential (primary) hypertension; E78.00 Pure hypercholesterolemia, unspecified; J45.909 Unspecified asthma, uncomplicated; E66.01 Morbid (severe) obesity due to excess calories; Z68.42 Body mass index [BMI] 45.0-49.9, adult; Z88.5 Allergy status to narcotic agent; V43.52XA Car driver injured in collision with other type car in traffic accident, initial encounter; Y93.89 Activity, other specified; Y92.488 Other paved roadways as the place of occurrence of the external cause; Y99.8 Other external cause status
CPT/HCPCS: 70450; 72125; 73564; 99284

== ENCOUNTER → 2019-05-10 | Outpatient (CLI) | payer OTHER ==
[~2019-05-10] MED LIST changes: +MONT10TA49 PO; -MONT10TA9 PO; +TRAM-48 PO
--- NOTE | 2019-05-10 10:39 | KCIC ---
EYE FOR FOREIGN BODY DATE: 05/10/2019 10:15 AM INDICATION: Screening for metal within the orbits prior to an MRI study. TECHNIQUE: Cassidy view of the orbits was performed. COMPARISON: None. FINDINGS: No metallic foreign body is seen within either orbit. The maxillary, ethmoid, and frontal sinuses are clear. The orbital floors appear symmetric and are intact. IMPRESSION: No metallic foreign body is identified within either orbit. Electronically signed by: Atif Persaud MD (05/10/2019 10:37 AM) [id number]
--- NOTE | 2019-05-10 12:20 | KCIC ---
LUMBAR SPINE WO CONTRAST Date: 05/10/2019 10:15 AM Indication: Chronic low back pain with right lower extremity radiculopathy Comparison: None. Technique: Multi-planar multi-weighted magnetic resonance imaging of the lumbar spine was performed without intravenous contrast using the standard lumbar spine protocol. FINDINGS: The lumbar spine is normally aligned. No acute fracture. Mild multilevel degenerative disc desiccation. No marrow replacing process to suggest malignancy. The conus terminates at a normal level. No abnormal signal is seen within the visualized distal spinal cord. No clumping of intrathecal nerve roots. No soft tissue abnormality in the visualized abdomen or pelvis. T12-L1: No disc bulge. No facet arthropathy. No significant spinal stenosis or neural foraminal narrowing. L1-L2: No disc bulge. No facet arthropathy. No significant spinal stenosis or neural foraminal narrowing. L2-L3: Disc bulge. Mild facet arthropathy. No significant spinal stenosis or neural foraminal narrowing. L3-L4: Disc bulge. Mild facet arthropathy. No significant spinal stenosis or neural foraminal narrowing. L4-L5: Disc bulge. Mild facet arthropathy. No significant spinal stenosis or neural foraminal narrowing. L5-S1: Disc bulge with left far lateral protrusion which abuts the exiting left L5 nerve root. Mild facet arthropathy. No significant spinal stenosis. Mild right and moderate left neural foraminal narrowing. IMPRESSION: Lumbar spondylosis, detailed level by level above. No high-grade spinal canal narrowing. Electronically signed by: Atif Persaud MD (05/10/2019 12:17 PM) [facility]
--- NOTE | 2019-05-10 14:38 | KCIC ---
KNEE STANDING BILAT AP History: DJD of both knees. Bilateral knee pain.. Findings: Mild narrowing of the medial compartment of both knees with small marginal osteophytes. Lateral joint height appears grossly maintained. No definite bone abnormality on limited view. IMPRESSION: Mild primary osteoarthritis at the medial joint compartments. Electronically signed by: Orlando Rea MD (05/10/2019 2:35 PM) [facility]
== END | disposition home or self-care (01) ==
LOC: KCIC MRI 09:48
PROVIDERS: ATTEND Physical Medicine & Rehabilitation
DX: M12.88 Other specific arthropathies, not elsewhere classified, other specified site (principal); M48.07 Spinal stenosis, lumbosacral region; M51.27 Other intervertebral disc displacement, lumbosacral region; M47.26 Other spondylosis with radiculopathy, lumbar region; M17.0 Bilateral primary osteoarthritis of knee; M25.762 Osteophyte, left knee; M25.761 Osteophyte, right knee; G89.29 Other chronic pain
CPT/HCPCS: 70030; 72148; 73565

== ENCOUNTER → 2019-06-11 | Outpatient (CLI) | payer OTHER ==
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
== END | disposition home or self-care (01) ==
LOC: PNCL 09:25
PROVIDERS: ATTEND Anesthesiology
DX: M47.896 Other spondylosis, lumbar region (principal); M51.26 Other intervertebral disc displacement, lumbar region; I48.91 Unspecified atrial fibrillation; I10 Essential (primary) hypertension; M19.90 Unspecified osteoarthritis, unspecified site; Z98.890 Other specified postprocedural states; Z79.899 Other long term (current) drug therapy; V89.2XXA Person injured in unspecified motor-vehicle accident, traffic, initial encounter; Y93.89 Activity, other specified; Y92.89 Other specified places as the place of occurrence of the external cause; Y99.8 Other external cause status
CPT/HCPCS: G0463

== ENCOUNTER 2019-07-06 09:42 | Inpatient (IN) | payer OTHER ==
[2019-07-06] VITALS (7 sets, daily range): BP systolic 130–150; BP diastolic 60–94
[~2019-07-06] VITALS: Ht 172.7 cm; Wt 148.0 kg
[2019-07-06] MEDS ORDERED: ASPIRIN CHEWABLE 81 MG TABLET. PO ONE (10:00)
--- NOTE | 2019-07-06 10:02 | PHYS DOC ---
Past Medical History Past Medical History: Asthma, High Cholesterol, Hypertension, Other Additional Past Medical Histor: HEYDI KNEE PAIN Past Surgical History: Other Additional Past Surgical Histo: right 3rd fingernail removed, Umbilical Hernia repair Alcohol Use: None Drug Use: None Adult General Chief Complaint Chief Complaint: CHEST PAIN HPI HPI 49-year-old male with underlying history of hypertension, hyperlipidemia, chronic anticoagulation presents to the emergency Department with complaints of chest pain. Patient states pain will come approximate 3 AM this morning, d escribed as a pressure sensation, inability to take a big breath. The pain does not move, nothing makes the pain worse, nothing makes it better. He denies any nausea or vomiting however does describe some diaphoresis this morning. He is on eliquis as well as Cardizem however states no history of atrial fibrillation. Given his continued symptoms he presented to the ER for further evaluation Review of Systems Review of Systems Constitutional: Denies fever or chills [] Respiratory: Shortness of breath Cardiovascular: No additional information not addressed in HPI [] GI: Denies abdominal pain, nausea, vomiting, bloody stools or diarrhea [] Musculoskeletal: Denies back pain or joint pain [] Neurologic: Denies headache, focal weakness or sensory changes [] All other systems were reviewed and found to be within normal limits, except as documented in this note. Current Medications Current Medications Current Medications Medications (Trade) Dose Ordered Sig/Jhon Start Time Stop Time Status Last Admin Dose Admin Aspirin (Children'S Aspirin) 324 mg 1X ONCE 07/06/19 10:00 07/06/19 10:01 DC 07/06/19 10:21 324 MG Diltiazem HCl (Cardizem Iv Push) 10 mg 1X ONCE 07/06/19 10:30 07/06/19 10:31 DC 07/06/19 10:21 10 MG Diltiazem HCl 125 mg/Dextrose 125 ml @ 10 mls/hr 1X ONCE 07/06/19 10:30 07/06/19 22:59 07/06/19 10:21 10 MLS/HR Allergies Allergies Allergies Coded Allergies Type Severity Reaction Last Updated Verified morphine Allergy Severe Shortness of Air 01/08/19 Yes Physical Exam Physical Exam Constitutional: Well developed, well nourished, no acute distress, non-toxic appearance. [] HENT: Normocephalic, atraumatic, bilateral external ears normal, oropharynx moist, no oral exudates, nose normal. [] Eyes: PERRLA, EOMI, conjunctiva normal, no discharge. [] Cardiovascular:Heart rate regular rhythm, no murmur [] Lungs & Thorax: Bilateral breath sounds clear to auscultation [] Abdomen: Bowel sounds normal, soft, no tenderness, no masses, no pulsatile masses. [] Skin: Warm, dry, no erythema, no rash. [] Back: No tenderness, no CVA tenderness. [] Extremities: No tenderness, no cyanosis, no edema. [] Neurologic: Alert and oriented X 3, no focal deficits noted. [] Psychologic: Affect normal, judgement normal, mood normal. [] Current Patient Data Vital Signs Vital Signs Date Time Temp Pulse Resp B/P (MAP) Pulse Ox O2 Delivery O2 Flow Rate FiO2 07/06/19 10:21 153 153/100 07/06/19 09:42 98.6 17 95 Room Air 98.6 Lab Values Laboratory Tests Test 07/06/19 10:00 White Blood Count 7.7 x10^3/uL (4.0-11.0) Red Blood Count 5.20 x10^6/uL (4.30-5.70) Hemoglobin 15.2 g/dL (13.0-17.5) Hematocrit 44.3 % (39.0-53.0) Mean Corpuscular Volume 85 fL (79-100) Mean Corpuscular Hemoglobin 29 pg (25-35) Mean Corpuscular Hemoglobin Concent 34 g/dL (31-37) Red Cell Distribution Width 13.1 % (11.5-14.5) Platelet Count 204 x10^3/uL (140-400) Neutrophils (%) (Auto) 52 % (31-73) Lymphocytes (%) (Auto) 37 % (24-48) Monocytes (%) (Auto) 8 % (0-9) Eosinophils (%) (Auto) 3 % (0-3) Basophils (%) (Auto) 1 % (0-3) Neutrophils # (Auto) 4.0 x10^3/uL (1.8-7.7) Lymphocytes # (Auto) 2.8 x10^3/uL (1.0-4.8) Monocytes # (Auto) 0.6 x10^3/uL (0.0-1.1) Eosinophils # (Auto) 0.2 x10^3/uL (0.0-0.7) Basophils # (Auto) 0.1 x10^3/uL (0.0-0.2) Sodium Level 142 mmol/L (136-145) Potassium Level 4.5 mmol/L (3.5-5.1) Chloride Level 106 mmol/L (98-107) Carbon Dioxide Level 26 mmol/L (21-32) Anion Gap 10 (6-14) Blood Urea Nitrogen 11 mg/dL (8-26) Creatinine 1.0 mg/dL (0.7-1.3) Estimated GFR (Cockcroft-Gault) 79.1 BUN/Creatinine Ratio 11 (6-20) Glucose Level 158 mg/dL (70-99) H Calcium Level 8.9 mg/dL (8.5-10.1) Magnesium Level 1.8 mg/dL (1.8-2.4) Total Bilirubin 0.4 mg/dL (0.2-1.0) Aspartate Amino Transferase (AST) 31 U/L (15-37) Alanine Aminotransferase (ALT) 38 U/L (16-63) Alkaline Phosphatase 82 U/L (46-116) Troponin I Quantitative < 0.017 ng/mL (0.000-0.055) Total Protein 6.5 g/dL (6.4-8.2) Albumin 3.5 g/dL (3.4-5.0) Albumin/Globulin Ratio 1.2 (1.0-1.7) Laboratory Tests 07/06/19 10:00 Laboratory Tests 07/06/19 10:00 EKG EKG EKG reviewed, atrial fibrillation, heart rate 125, no acute ST elevation appreciated.[] Interpretation Time: Interpretation time 0 959 Radiology/Procedures Radiology/Procedures [facility] [address] [place], [place] [address] IMAGING REPORT Signed PATIENT: WILLIAM CARTERACCOUNT: [id number] : 1970 LOCATION: ER AGE: 49 SEX: M EXAM STATUS: PRE ER ORD. PHYSICIAN: LINDSAY MAY MD REASON: chest pain, soa PROCEDURE: PORTABLE CHEST 1V PORTABLE CHEST 1V History: Chest pain. Shortness of breath. Comparison: May 06, 2018. Findings: No consolidation or pleural effusion. Normal heart size. Impression: 1. No acute cardiopulmonary process. Electronically signed by: Elbert Fortune DO (07/06/2019 10:35 AM) [id number] DICTATED and SIGNED BY: ELBERT FORTUNE DO DATE: 07/06/19 1035 [] Course & Med Decision Making Course & Med Decision Making Pertinent Labs and Imaging studies reviewed. (See chart for details) []49-year-old male with underlying history of hypertension, hyperlipidemia, chronic anticoagulation presents to the emergency Department with complaints of chest pain. Patient states pain will come approximate 3 AM this morning, described as a pressure sensation, inability to take a big breath. The pain does not move, nothing makes the pain worse, nothing makes it better. He denies any nausea or vomiting however does describe some diaphoresis this morning. He is on eliquis as well as Cardizem however states no history of atrial fibrillation. Given his continued symptoms he presented to the ER for further evaluation. EKG upon initial evaluation shows atrial fibrillation with RVR, 120s prior to EKG in the 150s. Laboratory values reviewed, troponin negative. Chest x-ray reveals no evidence of acute cardio pulmonary process. Patient received IV bolus of Cardizem 10 mg, started on a drip currently is 100s. Discussed admission with the patient's primary care physician, will ask cardiology to see patient in consultation as well. Discussed admission with patient he is in agreement. Dragon Disclaimer Dragon Disclaimer This electronic medical record was generated, in whole or in part, using a voice recognition dictation system. Departure Departure Impression: Primary Impression: Atrial fibrillation with RVR Additional Impression: Chest pain Disposition: ADMITTED INPATIENT Admitting Physician: Orlando Carroll Condition: IMPROVED Referrals: ORLANDO CARROLL MD (PCP) Problem Qualifiers Additional Impression: Chest pain Chest pain type: unspecified Qualified Codes: R07.9 - Chest pain, unspecified LINDSAY MAY MD Jul 06, 2019 10:02
[2019-07-06 10:14] LABS: BASO # 0.1 x10^3/uL (0.0-0.2); BASO % 1 % (0-3); EOS # 0.2 x10^3/uL (0.0-0.7); EOS % 3 % (0-3); HEMATOCRIT 44.3 % (39.0-53.0); HEMOGLOBIN 15.2 g/dL (13.0-17.5); LYMPH # 2.8 x10^3/uL (1.0-4.8); LYMPH % 37 % (24-48); MEAN CORPUSCULAR HEMOGLOBIN 29 pg (25-35); MEAN CORPUSCULAR HGB CONC 34 g/dL (31-37); MEAN CORPUSCULAR VOLUME 85 fL (79-100); MONO # 0.6 x10^3/uL (0.0-1.1); MONO % 8 % (0-9); NEUT % 52 % (31-73); PLATELET COUNT 204 x10^3/uL (140-400); RED CELL DISTRIBUTION WIDTH 13.1 % (11.5-14.5); WHITE BLOOD COUNT 7.7 x10^3/uL (4.0-11.0)
[2019-07-06 10:22] LABS: CALCIUM 8.9 mg/dL (8.5-10.1); GFR 79.1; POTASSIUM 4.5 mmol/L (3.5-5.1)
[2019-07-06 10:28] LABS: ALBUMIN 3.5 g/dL (3.4-5.0); ALBUMIN/GLOBULIN RATIO 1.2 (1.0-1.7); MAGNESIUM 1.8 mg/dL (1.8-2.4); TOTAL BILIRUBIN 0.4 mg/dL (0.2-1.0); TOTAL PROTEIN 6.5 g/dL (6.4-8.2)
[2019-07-06] MEDS ORDERED: dilTIAZem INJ 125 MG in IV DEXTROSE 5% 100ML 100 ML IV ONE (10:30)
[2019-07-06] MEDS ORDERED: dilTIAZem IV PUSH 25 MG/5 ML VIAL IVP ONE (10:30)
--- NOTE | 2019-07-06 10:38 | RAD ---
PORTABLE CHEST 1V History: Chest pain. Shortness of breath. Comparison: May 06, 2018. Findings: No consolidation or pleural effusion. Normal heart size. Impression: 1. No acute cardiopulmonary process. Electronically signed by: Elbert Fortune DO (07/06/2019 10:35 AM) [email or web address]
[2019-07-06] MEDS ORDERED: ACETAMINOPHEN 325 MG TABLET. PO PRN (11:15)
[2019-07-06] MEDS ORDERED: ONDANSETRON PF 4 MG/2 ML VIAL. IV PRN (11:15)
--- NOTE | 2019-07-06 12:52 | EKG ---
[facility] [address] [place] [address] Test Date: 2019-07-06 Test Time: 09:52:10 Pat Name: WILLIAM CARTERDepartment: Room: Gender: M Manager Consumer: : 1970 Requested By: LINDSAY MAY Order Number: [id number] Reading MD: Measurements Intervals [place] Rate: 125 P: IN: QRS: 38 QRSD: 78 T: 23 QT: 296 QTc: 429 Interpretive Statements IRREGULAR RHYTHM, NO P-WAVE FOUND OTHERWISE NORMAL ECG RI6.01 No previous ECG available for comparison
--- NOTE | 2019-07-06 13:13 | PDOC2 ---
DEIDRE GAMEZ NUCLEAR EQUIPMENT DESIGN ENGINEER 07/06/19 1313: CARDIAC CONSULT DATE OF CONSULT Date of Consult DATE: 07/06/19 TIME: 13:03 REASON FOR CONSULT Reason for Consult: AFIB RVR, CP REFERRING PHYSICIAN Referring Physician: Alfa SOURCE Source: Chart review, Patient HISTORY OF PRESENT ILLNESS HISTORY OF PRESENT ILLNESS This is a pleasant 49 yo male admitted for complains of palpitations. Reports that this has been on and off in the las few weeks. Reports that around 3AM this woke him up and his palpitations was sustained. Associated with SOA, nausea, global FINE and dizziness. No passing out. He has been complaint with his medications but has been cancelling his appt with cardiology citing that he forgets. PAST MEDICAL HISTORY Cardiovascular: AFIB, HTN, Hyperlipidemia Pulmonary: Asthma, Other (JEOVANY) CENTRAL NERVOUS SYSTEM: Other (Noncontributory) GI: GERD Psych: Depression Musculoskeletal: low back pain, Osteoarthritis Rheumatologic: No pertinent hx Infectious disease: No pertinent hx ENT: Other (visual impairment) Renal/: No pertinent hx Endocrine: No pertinent hx Dermatology: No pertinent hx PAST SURGICAL HISTORY Past Surgical History: Other (incarcerated umbilical hernia repair) FAMILY HISTORY Family History: Heart Disease, Hypertension SOCIAL HISTORY Smoke: No ALCOHOL: none Drugs: None Lives: with Family CURRENT MEDICATIONS CURRENT MEDICATIONS Current Medications Medications (Trade) Dose Ordered Sig/Jhon Route PRN Reason Start Time Stop Time Status Last Admin Dose Admin Aspirin (Children'S Aspirin) 324 mg 1X ONCE PO 07/06/19 10:00 07/06/19 10:01 DC 07/06/19 10:21 Diltiazem HCl (Cardizem Iv Push) 10 mg 1X ONCE IVP 07/06/19 10:30 07/06/19 10:31 DC 07/06/19 10:21 Diltiazem HCl 125 mg/Dextrose 125 ml @ 10 mls/hr 1X ONCE IV 07/06/19 10:30 07/06/19 22:59 07/06/19 10:21 ALLERGIES ALLERGIES: Coded Allergies: morphine (Verified Allergy, Severe, Shortness of Air, 01/08/19) "SWEATING" ROS Review of System 14 point ROS evaluated with pertinent positives noted per HPI PHYSICAL EXAM General: Alert, Oriented X3, Cooperative, No acute distress HEENT: Atraumatic, Mucous membr. moist/pink Lungs: Clear to auscultation, Normal air movement Heart: Other (AFIB RVR) Abdomen: Soft, No tenderness, Other (obese) Extremities: No cyanosis, No edema Skin: No breakdown, No significant lesion Neuro: Normal speech, Sensation intact Psych/Mental Status: Mental status NL, Mood NL MUSCULOSKELETAL: Osteoarthritic changes both hands VITALS/I&O VITALS/I&O: Vital Signs Date Time Temp Pulse Resp B/P (MAP) Pulse Ox O2 Delivery O2 Flow Rate FiO2 07/06/19 12:25 105 17 134/64 (87) 96 Room Air 07/06/19 09:42 98.6 98.6 LABS Lab: Laboratory Tests Test 07/06/19 10:00 White Blood Count 7.7 x10^3/uL (4.0-11.0) Red Blood Count 5.20 x10^6/uL (4.30-5.70) Hemoglobin 15.2 g/dL (13.0-17.5) Hematocrit 44.3 % (39.0-53.0) Mean Corpuscular Volume 85 fL (79-100) Mean Corpuscular Hemoglobin 29 pg (25-35) Mean Corpuscular Hemoglobin Concent 34 g/dL (31-37) Red Cell Distribution Width 13.1 % (11.5-14.5) Platelet Count 204 x10^3/uL (140-400) Neutrophils (%) (Auto) 52 % (31-73) Lymphocytes (%) (Auto) 37 % (24-48) Monocytes (%) (Auto) 8 % (0-9) Eosinophils (%) (Auto) 3 % (0-3) Basophils (%) (Auto) 1 % (0-3) Neutrophils # (Auto) 4.0 x10^3/uL (1.8-7.7) Lymphocytes # (Auto) 2.8 x10^3/uL (1.0-4.8) Monocytes # (Auto) 0.6 x10^3/uL (0.0-1.1) Eosinophils # (Auto) 0.2 x10^3/uL (0.0-0.7) Basophils # (Auto) 0.1 x10^3/uL (0.0-0.2) Sodium Level 142 mmol/L (136-145) Potassium Level 4.5 mmol/L (3.5-5.1) Chloride Level 106 mmol/L (98-107) Carbon Dioxide Level 26 mmol/L (21-32) Anion Gap 10 (6-14) Blood Urea Nitrogen 11 mg/dL (8-26) Creatinine 1.0 mg/dL (0.7-1.3) Estimated GFR (Cockcroft-Gault) 79.1 BUN/Creatinine Ratio 11 (6-20) Glucose Level 158 mg/dL (70-99) H Calcium Level 8.9 mg/dL (8.5-10.1) Magnesium Level 1.8 mg/dL (1.8-2.4) Total Bilirubin 0.4 mg/dL (0.2-1.0) Aspartate Amino Transferase (AST) 31 U/L (15-37) Alanine Aminotransferase (ALT) 38 U/L (16-63) Alkaline Phosphatase 82 U/L (46-116) Troponin I Quantitative < 0.017 ng/mL (0.000-0.055) Total Protein 6.5 g/dL (6.4-8.2) Albumin 3.5 g/dL (3.4-5.0) Albumin/Globulin Ratio 1.2 (1.0-1.7) Laboratory Tests 07/06/19 10:00 Laboratory Tests 07/06/19 10:00 ECHOCARDIOGRAM ECHOCARDIOGRAM <Conclusion> The left ventricular systolic function is normal. The Ejection Fraction is 60-65%. There is normal LV segmental wall motion. Trace mitral valve regurgitation. There is no evidence of significant pericardial effusion. DATE: 05/07/18 1527 STRESS TEST STRESS TEST Conclusion 1. Regadenoson cardioisotope stress test did not show any evidence of ischemia or infarct. 2. Normal left ventricular systolic function with ejection fraction calculated at 67%. 3. Low risk for cardiac events. DATE: 06/09/18 1140 ASSESSMENT/PLAN ASSESSMENT/PLAN 1. AFIB RVR 2. HTN: controlled 3. HLP 4. JEOVANY: uses CPAP 5. Morbid obesity 6. Noncompliance: has not been following up Recommendations Continue eliquis. DC cardizem drip and start on metoprolol Wt loss Continue statin If remains in AFIB this weekend then will consider for cardioversion. INDIA VAZQUEZ MD 07/07/19 3461: CARDIAC CONSULT ASSESSMENT/PLAN ASSESSMENT/PLAN Patient seen and examined 07/06/19. Agree with BUS ESCORT's assessment and plan. Afib rate better controlled Agree with metoprolol for rate control Continue eliquis for stroke prophylaxis Thank you for your consultation DEIDRE GAMEZ APRN Jul 06, 2019 13:13 INDIA VAZQUEZ MD Jul 07, 2019 18:34
[2019-07-06] MEDS ORDERED: METOPROLOL TART IMMED RELEASE 50 MG TABLET. PO ONE (16:30)
[2019-07-06] MEDS ORDERED: IBUPROFEN 400 MG TABLET. PO PRN (19:15)
[2019-07-06] MEDS: ALBUTEROL SULFATE 2.5 MG/3 ML NEBU. NEB SCH (20:48)
[2019-07-06] MEDS: BUDESONIDE 0.5 MG/2 ML NEBU. NEB SCH (20:48)
[2019-07-06] MEDS ORDERED: APIXABAN 5 MG TABLET. PO SCH (21:00)
[2019-07-06] MEDS: ATORVASTATIN CALCIUM 40 MG TABLET. PO SCH (21:07)
[2019-07-06] MEDS: APIXABAN 5 MG TABLET. PO SCH (21:07)
[2019-07-07] VITALS (7 sets, daily range): BP systolic 130–166; BP diastolic 70–95
[2019-07-07 05:03] LABS: BASO % 0 % (0-3); EOS # 0.2 x10^3/uL (0.0-0.7); EOS % 3 % (0-3); HEMATOCRIT 44.6 % (39.0-53.0); HEMOGLOBIN 14.9 g/dL (13.0-17.5); LYMPH % 38 % (24-48); MEAN CORPUSCULAR HEMOGLOBIN 29 pg (25-35); MEAN CORPUSCULAR HGB CONC 33 g/dL (31-37); MEAN CORPUSCULAR VOLUME 85 fL (79-100); MONO # 0.8 x10^3/uL (0.0-1.1); MONO % 10 % (0-9); NEUT # 3.9 x10^3/uL (1.8-7.7); NEUT % 49 % (31-73); PLATELET COUNT 189 x10^3/uL (140-400); RED BLOOD COUNT 5.22 x10^6/uL (4.30-5.70); RED CELL DISTRIBUTION WIDTH 13.3 % (11.5-14.5); WHITE BLOOD COUNT 7.9 x10^3/uL (4.0-11.0)
[2019-07-07 05:22] LABS: CALCIUM 8.9 mg/dL (8.5-10.1); GFR 79.1; POTASSIUM 4.2 mmol/L (3.5-5.1)
[2019-07-07] MEDS: PANTOPRAZOLE 40 MG TABLET.DR. PO SCH (06:36)
[2019-07-07] MEDS: BUDESONIDE 0.5 MG/2 ML NEBU. NEB SCH ×2 (07:31→20:00)
[2019-07-07] MEDS: ALBUTEROL SULFATE 2.5 MG/3 ML NEBU. NEB SCH (07:31)
[2019-07-07] MEDS: FLUTICASONE 50MCG/NASAL SPRAY 16GM BOTTLE. NS SCH (09:16)
[2019-07-07] MEDS: MONTELUKAST SODIUM 10 MG TABLET. PO SCH (09:16)
[2019-07-07] MEDS: ASPIRIN 325 MG TABLET PO SCH (09:16)
[2019-07-07] MEDS: APIXABAN 5 MG TABLET. PO SCH ×2 (09:17→20:51)
[2019-07-07] MEDS: CETIRIZINE HCL 10 MG TABLET. PO SCH (09:17)
[2019-07-07] MEDS: METOPROLOL TART IMMED RELEASE 50 MG TABLET. PO SCH ×2 (09:31→20:51)
[2019-07-07] MEDS ORDERED: ALBUTEROL SULFATE 2.5 MG/3 ML NEBU. NEB PRN (12:45)
[2019-07-07] MEDS ORDERED: hydrALAZINE 20 MG/ML VIAL. IVP PRN (13:15)
--- NOTE | 2019-07-07 14:34 | PDOC ---
PROGRESS NOTES Subjective Still in afib with RVR and hypertensive but no chest pain, he states that metoprolol has not worked in the past, diltiazem restarted, he did not sleep last night as didn't have CPAP Objective Afebrile BP: 176/76 General: A&O Heart: tachy, monitor showing Afib Lungs: CTA Abd: obese, non tender Ext: no edema Vital Signs Vital Signs Date Time Temp Pulse Resp B/P (MAP) Pulse Ox O2 Delivery O2 Flow Rate FiO2 07/07/19 13:49 131 176/76 07/07/19 11:00 97.7 20 97 Room Air 97.7 07/07/19 08:00 2.0 I & O Intake and Output 07/07/19 06:59 Intake Total 1450 ml Output Total 800 ml Balance 650 ml Intake Oral 1200 ml IV Total 250 ml Output Urine Total 800 ml # Voids 1 Assessment and Plan (1) Atrial fibrillation with RVR - metoprolol + diltiazem po, may need to resume diltiazem IV, may need cardioversion Status: Acute (2) Chest pain - resolved Status: Acute (3) Hypertension - uncontrolled (4) JEOVANY - CPAP (5) morbid obesity Status: Acute Bryan OBRIEN MD Jul 07, 2019 14:34
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
[2019-07-07] MEDS ORDERED: DIGOXIN IV 500 MCG/2 ML AMPUL. IV ONE (15:30)
--- NOTE | 2019-07-07 20:00 | NUR ---
CONSULTED DR PRATT REGARDING HR DID NOT WANT TO RESUME ORDER FROM DR OBRIEN TO RESTART CARDIZEM GTT AT THAT TIME. ORDERS RECEIVED.WILL CONTINUE TO MONITOR PT.
[2019-07-07] MEDS: ATORVASTATIN CALCIUM 40 MG TABLET. PO SCH (20:51)
[2019-07-08 03:00] VITALS: BP 130/75
[2019-07-08 07:00] VITALS: BP 133/82
[2019-07-08] MEDS: PANTOPRAZOLE 40 MG TABLET.DR. PO SCH (07:07)
[2019-07-08] MEDS: BUDESONIDE 0.5 MG/2 ML NEBU. NEB SCH ×2 (08:00→20:00)
[2019-07-08] MEDS: MONTELUKAST SODIUM 10 MG TABLET. PO SCH (09:00)
[2019-07-08] MEDS: CETIRIZINE HCL 10 MG TABLET. PO SCH (09:00)
[2019-07-08] MEDS: FLUTICASONE 50MCG/NASAL SPRAY 16GM BOTTLE. NS SCH (09:03)
[2019-07-08] MEDS: ASPIRIN 325 MG TABLET PO SCH (09:03)
[2019-07-08] MEDS: APIXABAN 5 MG TABLET. PO SCH ×2 (09:04→21:34)
[2019-07-08] MEDS: METOPROLOL TART IMMED RELEASE 50 MG TABLET. PO SCH ×2 (09:07→21:34)
[2019-07-08 11:00] VITALS: BP 150/86
--- NOTE | 2019-07-08 11:31 | PDOC ---
PROGRESS NOTES Subjective Still in Afib but rate controlled, he feels better, slept well with CPAP last night and felt our machine/mask is better than his at home. He is due for a LESI but is currently on eliquis Objective General: NAD, A&O Heart: irreg, rate controlled Lungs: CTAB Abd: obese, soft, non tender Ext: no C/C/E or bruising Back : lumbar pain but sits up in bed without obvious pain Vital Signs Vital Signs Date Time Temp Pulse Resp B/P (MAP) Pulse Ox O2 Delivery O2 Flow Rate FiO2 07/08/19 09:07 101 133/82 07/08/19 08:00 Nasal Cannula 2.0 07/08/19 07:00 98.0 20 96 98.0 I & O Intake and Output 07/08/19 07:00 Intake Total 600 ml Output Total 1200 ml Balance -600 ml Intake Oral 600 ml Output Urine Total 1200 ml Assessment and Plan Problems Medical Problems: (1) Atrial fibrillation with RVR - cardioversion tomorrow Status: Acute (2) Chest pain - resolved Status: Acute (3) Hypertension - controlled (4) chronic back pain - scheduled for LESI but if on blood thinners that will need to be postponed (5) JEOVANY - CPAP - may need a new titration study/mask as hospital machine better than his home machine (6) morbid obesity - discussed importance of weight loss Status: Acute Bryan OBRIEN MD Jul 08, 2019 11:31
[2019-07-08 15:00] VITALS: BP 147/69
[2019-07-08 19:55] VITALS: BP 134/81
[2019-07-08] MEDS: ATORVASTATIN CALCIUM 40 MG TABLET. PO SCH (21:33)
[2019-07-08 23:35] VITALS: BP 128/68
[2019-07-09 03:00] VITALS: BP 159/65
[2019-07-09 07:00] VITALS: BP 167/77
[2019-07-09] MEDS: BUDESONIDE 0.5 MG/2 ML NEBU. NEB SCH (07:31)
[2019-07-09] MEDS ORDERED: ANTI-COAG MONITOR BY PHARMACY. MC PRN (08:15)
[2019-07-09] MEDS: MONTELUKAST SODIUM 10 MG TABLET. PO SCH (09:00)
[2019-07-09] MEDS: CETIRIZINE HCL 10 MG TABLET. PO SCH (09:00)
[2019-07-09] MEDS: ASPIRIN 325 MG TABLET PO SCH (09:52)
[2019-07-09] MEDS: APIXABAN 5 MG TABLET. PO SCH (09:52)
[2019-07-09] MEDS: METOPROLOL TART IMMED RELEASE 50 MG TABLET. PO SCH (09:53)
[2019-07-09] MEDS: PANTOPRAZOLE 40 MG TABLET.DR. PO SCH (09:53)
[2019-07-09] MEDS: FLUTICASONE 50MCG/NASAL SPRAY 16GM BOTTLE. NS SCH (09:54)
[2019-07-09 10:50] VITALS: BP 149/72
--- NOTE | 2019-07-09 13:59 | NUR ---
SS following for discharge planning. SS reviewed pt chart. Pt is from home with spouse and is currently on room air. No discharge needs noted at this time. SS will continue to follow for discharge planning.
--- NOTE | 2019-07-09 14:25 | PDOC ---
PROGRESS NOTES Subjective Subjective Patient feeling better. He denied any palpitations. Objective Objective Vital Signs Date Time Temp Pulse Resp B/P (MAP) Pulse Ox O2 Delivery O2 Flow Rate FiO2 07/09/19 10:50 97.6 93 16 149/72 (97) 97 Room Air 97.6 07/08/19 08:00 2.0 Intake and Output 07/09/19 07:00 Intake Total 200 ml Output Total 300 ml Balance -100 ml Intake Oral 200 ml Output Urine Total 300 ml # Voids 3 Physical Exam Abdomen: Soft, No tenderness, Other (obese) Heart: Other (AFIB RVR) Extremities: No cyanosis, No edema General: Alert, Oriented X3, Cooperative, No acute distress HEENT: Atraumatic, Mucous membr. moist/pink Lungs: Clear to auscultation, Normal air movement Neuro: Normal speech, Sensation intact Psych/Mental Status: Mental status NL, Mood NL Skin: No breakdown, No significant lesion Assessment Assessment 1. AFIB RVR. Heart rate much better controlled. Continue Cardizem for rate control and eliquis for stroke prophylaxis. Plan for outpatient cardioversion in 1 month. 2. HTN: controlled 3. HLP: Statins 4. JEOVANY: uses CPAP Follow-up with our office in 1 month Plan Plan of Care Problems Medical Problems: (1) Asthma Status: Chronic (2) Atrial fibrillation with RVR Status: Acute (3) Chest pain Status: Acute (4) HLD (hyperlipidemia) Status: Chronic (5) Hypertension Status: Acute (6) JEOVANY (obstructive sleep apnea) Status: Chronic (7) Osteoarthritis of knees, bilateral Status: Chronic (8) Sinusitis Status: Chronic Comment Review of Relevant I have reviewed the following items christine (where applicable) has been applied. Medications Current Medications Info (Anti-Coagulation Monitoring By Pharmacy) 1 each PRN DAILY PRN MC SEE COMMENTS Last administered on 07/09/19at 13:09; Start 07/09/19 at 08:15 Vitals/I & O Vital Sign - Last 24 Hours 07/08/19 07/08/19 07/08/19 07/08/19 15:00 19:40 19:55 21:34 Temp 97.6 98.0 97.6 98.0 Pulse 72 89 89 Resp 22 20 B/P (MAP) 147/69 (95) 134/81 (98) 134/81 Pulse Ox 97 97 O2 Delivery Room Air Room Air Room Air 07/08/19 07/09/19 07/09/19 07/09/19 23:35 02:00 03:00 04:27 Temp 97.9 97.5 97.9 97.5 Pulse 72 62 Resp 16 15 B/P (MAP) 128/68 (88) 159/65 (96) Pulse Ox 96 97 97 O2 Delivery Room Air BiPAP/CPAP BiPAP/CPAP BiPAP/CPAP 07/09/19 07/09/19 07/09/19 07/09/19 07:00 07:31 08:00 09:54 Temp 97.5 97.5 Pulse 91 121 Resp 18 B/P (MAP) 167/77 (107) 167/77 Pulse Ox 96 97 O2 Delivery Room Air Room Air Room Air 07/09/19 07/09/19 09:54 10:50 Temp 97.6 97.6 Pulse 131 93 Resp 16 B/P (MAP) 167/77 149/72 (97) Pulse Ox 97 O2 Delivery Room Air Intake and Output 07/08/19 07/08/19 07/09/19 15:00 23:00 07:00 Intake Total 200 ml Output Total 300 ml Balance -300 ml 200 ml INDIA VAZQUEZ MD Jul 09, 2019 14:25
[2019-07-09 15:00] VITALS: BP 118/73
[2019-07-09] MEDS ORDERED: METO50TA6 PO (15:33)
== END 2019-07-09 17:05 | disposition home or self-care (01) | DRG 309 ==
LOC: ER 09:42 → 2 SOUTH 11:54 → OBSVTOIN 18:56
PROVIDERS: ADMIT Family Medicine; ATTEND Family Medicine
PROC: 5A09357 Assistance with Respiratory Ventilation, Less than 24 Consecutive Hours, Continuous Positive Airway Pressure (ICD-10-PCS; principal; 2019-07-08)
PROC: 5A09357 Assistance with Respiratory Ventilation, Less than 24 Consecutive Hours, Continuous Positive Airway Pressure (ICD-10-PCS; 2019-07-09)
DX: I48.91 Unspecified atrial fibrillation (principal); Z68.42 Body mass index [BMI] 45.0-49.9, adult; Z88.8 Allergy status to other drugs, medicaments and biological substances; E66.01 Morbid (severe) obesity due to excess calories; E78.00 Pure hypercholesterolemia, unspecified; E78.5 Hyperlipidemia, unspecified; G47.33 Obstructive sleep apnea (adult) (pediatric); G89.29 Other chronic pain; I10 Essential (primary) hypertension; J32.9 Chronic sinusitis, unspecified; J45.909 Unspecified asthma, uncomplicated; F32.9 Major depressive disorder, single episode, unspecified; K21.9 Gastro-esophageal reflux disease without esophagitis; M17.0 Bilateral primary osteoarthritis of knee; Z79.01 Long term (current) use of anticoagulants; Z82.49 Family history of ischemic heart disease and other diseases of the circulatory system; Z91.19 Patient's noncompliance with other medical treatment and regimen
CPT/HCPCS: 36415; 71045; 80048; 80053; 83735; 84443; 84484; 85025; 93005; 94640; 94660; 94760; 95811; 96374; G0378; G0379; J1160; J3490; J7613; J7626; 99285-25

== ENCOUNTER → 2019-07-11 | Outpatient (CLI) | payer OTHER ==
[2019-07-09 15:00] VITALS: BP 118/73
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
== END | disposition home or self-care (01) ==
LOC: PNCL 10:30
PROVIDERS: ATTEND Anesthesiology
DX: M51.16 Intervertebral disc disorders with radiculopathy, lumbar region (principal); I48.91 Unspecified atrial fibrillation
CPT/HCPCS: G0463

== ENCOUNTER → 2019-08-14 | Outpatient (CLI) | payer OTHER ==
[~2019-08-14] MED LIST changes: +AZIT250T PO; +METH4TAB2 PO
--- NOTE | 2019-08-14 09:01 | PAIN ---
DATE OF SERVICE: 08/14/2019 PROGRESS NOTE FOR PAIN CLINIC DIAGNOSIS: Lumbar radiculopathy with lumbar degenerative disk disease. SUBJECTIVE: The patient is a 49-year-old male who returns for followup, was on his Eliquis and is still taking Eliquis. We had scheduled him for a lumbar epidural steroid injection; however, he was sick on his last visit time and was unable to make the appointment, returns now, reporting still significant pain in the low back and into the bilateral lower extremities as previous, somewhat worse on the left than the right in the posterior gluteus, posterior thighs, posterior calves, worse with walking, standing, changing positions, better with sitting or lying down but it is awaking from sleep for about 2-3 times a night. The patient reports no new motor or sensory deficits. He reports his pain is a 7 on a scale of 10 at all times, worst, average and least and is a 7 today, aching and tight, tingling, burning, cramping in the low back and legs, especially on the left side, becoming more constant with activity. The patient is walking with a cane in his right hand. Reports no new motor or sensory deficits. Again still on Eliquis, took his last dose this morning. PHYSICAL EXAMINATION: VITAL SIGNS: The patient's blood pressure is 140/80, pulse 85, respirations 18, temperature is 99.4. Weight is 324 pounds. GENERAL: The patient is awake, alert, oriented, appropriate, very pleasant demeanor. HEENT: Head shows normocephalic, atraumatic. Extraocular movements are intact and symmetrical. Oral cavity: Mucous membranes moist and pink. Dentition is intact. NECK: Shows anterior throat supple without palpable lymphadenopathy noted. Swallow reflex symmetrical. CHEST: Shows normal on inspection. Breath sounds clear to auscultation bilaterally. HEART: Shows S1 and S2 clear. ABDOMEN: Obese, soft, nontender, nondistended. No palpable organomegaly is noted. No rebound or guarding demonstrated. BACK: The patient's back shows spine grossly in midline. Slight exaggeration of thoracic kyphosis, minor flattening of lumbar lordotic curvature. Lumbar paraspinous muscle shows symmetrical on inspection, on palpation shows some moderate tenderness diffusely, but only diffusely without radiation. The patient has good rotational motion of lumbar spine without significant increase in pain. EXTREMITIES: Lower extremities showed deep tendon reflexes at 2+ patellar and 1+ tendo-calcaneus tendons. Motor exam is approximately 4 on a scale of 5 on the left, 5/5 on the right with dorsiflexion, extension, quadriceps and hamstring flexion, but intact. Peripheral pulses are 1+ posterior tibia. No peripheral edema is noted bilaterally. PLAN: Options were discussed with the patient. The patient's old chart was reviewed as his current medication regimen updated. Current review of systems updated today as well. We will have the patient hold the Eliquis for 3 days as he has been cleared by his cyberathlete to do so and have him return for a lumbar epidural steroid injection at that time. The patient is to maintain off work status until treatment is completed and we will give him a note per his request to be off work for the next 4 weeks as it is reasonable considering the time for the treatment and timing of the Eliquis and holding it between potential injections based on his response, which we will determine after his first procedure. LAITH BEYER MD DR: TOSHA/cherelle JOB#: [id number] / [id number]
== END | disposition home or self-care (01) ==
LOC: PNCL 08:04
PROVIDERS: ATTEND Anesthesiology
DX: M51.16 Intervertebral disc disorders with radiculopathy, lumbar region (principal); E66.9 Obesity, unspecified
CPT/HCPCS: G0463

== ENCOUNTER 2019-08-18 14:44 | Emergency (ER) | payer OTHER ==
[~2019-08-18] VITALS: Ht 177.8 cm; Wt 147.9 kg
[~2019-08-18 14:44] MED LIST changes: -AZIT250T PO; -METH4TAB2 PO
--- NOTE | 2019-08-18 15:22 | PHYS DOC ---
Past Medical History Past Medical History: A-Fib, Asthma, High Cholesterol, Hypertension, Other Additional Past Medical Histor: HEYDI KNEE PAIN Past Surgical History: Other Additional Past Surgical Histo: right 3rd fingernail removed, Umbilical Hernia repair Alcohol Use: None Drug Use: None Adult General Chief Complaint Chief Complaint: ASTHMA HPI HPI Patient is a 49 year old male with history of asthma, hypertension, dyslipidemia, atrial fibrillation on Eliquis who presents with complaining of cough and shortness of breath. Patient complaining of productive cough with s putum for the last 8 days associated with shortness of breath and sternal pain during episodes of cough. Patient states he had subjective fever last night. Patient complaining of headache and hurting all over. Patient states he was seen by his primary care physician 3 days ago and had pneumonia and flu vaccine without having any new medication. Patient states he has inhaler and nebulizer at home but the treatment did not help his cough and shortness of breath. Patient states he took [id number] NyQuil several hours ago. Patient had his blood pressure and other medication today and had blood pressure of 215/115 at arrival to ER. Review of Systems Review of Systems Constitutional: Reports subjective fever Eyes: Denies change in visual acuity, redness, or eye pain [] HENT: Reports nasal congestion and sore throat Respiratory: Reports cough and shortness of breath Cardiovascular: No additional information not addressed in HPI [] GI: Denies abdominal pain, nausea, vomiting, bloody stools or diarrhea [] : Denies dysuria or hematuria [] Musculoskeletal: Denies back pain or joint pain, reports myalgia [] Integument: Denies rash or skin lesions [] Neurologic: Denies headache, focal weakness or sensory changes [] Endocrine: Denies polyuria or polydipsia [] All other systems were reviewed and found to be within normal limits, except as documented in this note. Current Medications Current Medications Current Medications Medications (Trade) Dose Ordered Sig/Jhon Start Time Stop Time Status Last Admin Dose Admin Ceftriaxone Sodium (Rocephin) 1 gm STK-MED ONCE 08/18/19 16:12 08/18/19 16:13 DC Fentanyl Citrate (Fentanyl 2ml Vial) 50 mcg 1X ONCE 08/18/19 15:45 08/18/19 15:46 DC 08/18/19 15:28 50 MCG Hydralazine HCl (Apresoline Inj) 10 mg 1X ONCE 08/18/19 15:45 08/18/19 15:46 DC 08/18/19 15:29 10 MG Ipratropium Burke (Atrovent) 0.5 mg 1X ONCE 08/18/19 15:45 08/18/19 15:46 DC 08/18/19 15:34 0.5 MG Methylprednisolone Sodium Succinate (SOLU-Medrol 125MG VIAL) 125 mg 1X ONCE 08/18/19 15:45 08/18/19 15:46 DC 08/18/19 15:28 125 MG Allergies Allergies Allergies Coded Allergies Type Severity Reaction Last Updated Verified morphine Allergy Severe Shortness of Air 01/08/19 Yes Physical Exam Physical Exam Constitutional: Well developed, well nourished, mild distress, non-toxic appear ance. [] HENT: Normocephalic, atraumatic, bilateral external ears normal, pharyngeal erythema, oropharynx moist, no oral exudates, nose normal. [] Eyes: PERRLA, EOMI, conjunctiva normal, no discharge. [] Neck: Normal range of motion, no tenderness, supple, no stridor. [] Cardiovascular: Irregularly irregular rhythm, no murmur [] Lungs & Thorax: Bilateral mild wheezing Abdomen: Bowel sounds normal, soft, no tenderness, no masses, no pulsatile masses. [] Skin: Warm, dry, no erythema, no rash. [] Back: No tenderness, no CVA tenderness. [] Extremities: No tenderness, no cyanosis, no clubbing, ROM intact, no edema. [] Neurologic: Alert and oriented X 3, normal motor function, normal sensory function, no focal deficits noted. [] Psychologic: Affect normal, judgement normal, mood normal. [] Current Patient Data Vital Signs Vital Signs Date Time Temp Pulse Resp B/P (MAP) Pulse Ox O2 Delivery O2 Flow Rate FiO2 08/18/19 15:36 98 Room Air 08/18/19 15:29 71 173/93 08/18/19 15:28 19 08/18/19 14:55 97.8 97.8 Lab Values Laboratory Tests Test 08/18/19 15:22 White Blood Count 9.1 x10^3/uL (4.0-11.0) Red Blood Count 4.95 x10^6/uL (4.30-5.70) Hemoglobin 14.3 g/dL (13.0-17.5) Hematocrit 42.1 % (39.0-53.0) Mean Corpuscular Volume 85 fL (79-100) Mean Corpuscular Hemoglobin 29 pg (25-35) Mean Corpuscular Hemoglobin Concent 34 g/dL (31-37) Red Cell Distribution Width 13.1 % (11.5-14.5) Platelet Count 194 x10^3/uL (140-400) Neutrophils (%) (Auto) 61 % (31-73) Lymphocytes (%) (Auto) 26 % (24-48) Monocytes (%) (Auto) 9 % (0-9) Eosinophils (%) (Auto) 3 % (0-3) Basophils (%) (Auto) 1 % (0-3) Neutrophils # (Auto) 5.6 x10^3/uL (1.8-7.7) Lymphocytes # (Auto) 2.3 x10^3/uL (1.0-4.8) Monocytes # (Auto) 0.8 x10^3/uL (0.0-1.1) Eosinophils # (Auto) 0.3 x10^3/uL (0.0-0.7) Basophils # (Auto) 0.1 x10^3/uL (0.0-0.2) Sodium Level 141 mmol/L (136-145) Potassium Level 4.0 mmol/L (3.5-5.1) Chloride Level 104 mmol/L (98-107) Carbon Dioxide Level 26 mmol/L (21-32) Anion Gap 11 (6-14) Blood Urea Nitrogen 13 mg/dL (8-26) Creatinine 1.1 mg/dL (0.7-1.3) Estimated GFR (Cockcroft-Gault) 70.9 BUN/Creatinine Ratio 12 (6-20) Glucose Level 148 mg/dL (70-99) H Lactic Acid Level 1.7 mmol/L (0.4-2.0) Calcium Level 8.6 mg/dL (8.5-10.1) Total Bilirubin 0.3 mg/dL (0.2-1.0) Aspartate Amino Transferase (AST) 19 U/L (15-37) Alanine Aminotransferase (ALT) 32 U/L (16-63) Alkaline Phosphatase 92 U/L (46-116) Creatine Kinase 160 U/L (39-308) Troponin I Quantitative < 0.017 ng/mL (0.000-0.055) YT-Eom-B-Type Natriuretic Peptide 37 pg/mL (0-124) Total Protein 7.4 g/dL (6.4-8.2) Albumin 3.9 g/dL (3.4-5.0) Albumin/Globulin Ratio 1.1 (1.0-1.7) Influenza Type A Antigen Negative (NEGATIVE) Influenza Type B Antigen Negative (NEGATIVE) Laboratory Tests 08/18/19 15:22 Laboratory Tests 08/18/19 15:22 EKG EKG EKG interpreted by me. EKG at 1549 showed atrial flutter/ fibrillation without acute ST and T-wave elevation. Radiology/Procedures Radiology/Procedures [][facility] [address] [place] [address] IMAGING REPORT Signed PATIENT: WILLIAM CARTER EACCOUNT: [id number] : 1970 LOCATION: ER AGE: 49 SEX: M EXAM STATUS: REG ER ORD. PHYSICIAN: ROLO NJ MD REASON: cough and shortness of breath, HX of Asthma PROCEDURE: CHEST PA & LATERAL Exam: Chest 2 views INDICATION: Cough and shortness of breath TECHNIQUE: Frontal and lateral views the chest Comparisons: None FINDINGS: The cardiomediastinal silhouette and pulmonary vessels are within normal limits. The lung and pleural spaces are clear. IMPRESSION: No acute cardiopulmonary process. Electronically signed by: Glendy Rico MD (08/18/2019 4:09 PM) [facility] DICTATED and SIGNED BY: GLENDY RICO MD DATE: 08/18/19 3866 Course & Med Decision Making Course & Med Decision Making Pertinent Labs and Imaging studies reviewed. (See chart for details) Evaluation of patient in ER showed 49-year-old male patient with history of exacerbation of asthma presented complaining of shortness of breath and cough and hurting all over. Patient had blood pressure as high as 245/135 at arrival to ER with atrial fibrillation without RVR without hypotension or fever. Patient treated with DuoNeb, fentanyl, hydralazine, Solu-Medrol and the skin with improvement of his condition. Blood pressure gradually decreased to 150s over 80s. X-ray did not show infiltrate. Plan to discharge patient home with diagnose of asthma exacerbation and upper respiratory infection. Patient was advised to continue her home inhaler and nebulizers. Dragon Disclaimer Dragon Disclaimer This electronic medical record was generated, in whole or in part, using a voice recognition dictation system. Departure Departure Impression: Primary Impression: Acute asthma exacerbation Additional Impressions: Upper respiratory infection Hypertensive urgency Chronic atrial fibrillation Morbid obesity with BMI of 45.0-49.9, adult Disposition: HOME, SELF-CARE (at 1633) Condition: IMPROVED Referrals: ZELDA VALENZUELA MD (PCP) Patient Instructions: Asthma Attacks, Prevention, Managing Your High Blood Pressure, Upper Respiratory Infection, Adult Additional Instructions: Continue home inhaler and nebulizer Follow-up with your primary care physician in 3-5 days Return to ER if not getting better Scripts Azithromycin (ZITHROMAX) 250 Mg Tablet 1 PKG PO UD for infection, #1 PKG Prov: ROLO NJ MD 08/18/19 Benzonatate (TESSALON PERLE) 100 Mg Capsule 1 CAP PO TID for cough, #21 CAP Prov: ROLO NJ MD 08/18/19 Methylprednisolone (MEDROL) 4 Mg Tab.ds.pk 1 PKG PO UD for inflammation, #1 PKG Prov: ROLO NJ MD 08/18/19 Problem Qualifiers Primary Impression: Acute asthma exacerbation Asthma severity: moderate Asthma persistence: unspecified Qualified Codes: J45.901 - Unspecified asthma with (acute) exacerbation Additional Impressions: Upper respiratory infection URI type: unspecified URI Qualified Codes: J06.9 - Acute upper respiratory infection, unspecified ROLO NJ MD Aug 18, 2019 15:22
[2019-08-18 15:31] LABS: BASO # 0.1 x10^3/uL (0.0-0.2); BASO % 1 % (0-3); EOS # 0.3 x10^3/uL (0.0-0.7); EOS % 3 % (0-3); HEMATOCRIT 42.1 % (39.0-53.0); HEMOGLOBIN 14.3 g/dL (13.0-17.5); LYMPH # 2.3 x10^3/uL (1.0-4.8); LYMPH % 26 % (24-48); MEAN CORPUSCULAR HEMOGLOBIN 29 pg (25-35); MEAN CORPUSCULAR HGB CONC 34 g/dL (31-37); MEAN CORPUSCULAR VOLUME 85 fL (79-100); MONO # 0.8 x10^3/uL (0.0-1.1); MONO % 9 % (0-9); NEUT # 5.6 x10^3/uL (1.8-7.7); NEUT % 61 % (31-73); PLATELET COUNT 194 x10^3/uL (140-400); RED BLOOD COUNT 4.95 x10^6/uL (4.30-5.70); RED CELL DISTRIBUTION WIDTH 13.1 % (11.5-14.5); WHITE BLOOD COUNT 9.1 x10^3/uL (4.0-11.0)
[2019-08-18] MEDS ORDERED: hydrALAZINE 20 MG/ML VIAL. IVP ONE (15:45)
[2019-08-18] MEDS ORDERED: methylPREDNISolone SOD SUCC PF 125 MG/2 ML VIAL. IV ONE (15:45)
[2019-08-18] MEDS ORDERED: fentaNYL PF VIAL 100 MCG/2 ML VIAL IVP ONE (15:45)
[2019-08-18] MEDS ORDERED: IPRATROPIUM BROMIDE 0.5 MG/2.5 ML NEBU. NEB ONE (15:45)
[2019-08-18 15:48] LABS: CALCIUM 8.6 mg/dL (8.5-10.1); CREATININE 1.1 mg/dL (0.7-1.3); GFR 70.9
[2019-08-18 15:53] LABS: INFLUENZA A PATIENT NEGATIVE (NEGATIVE); INFLUENZA B PATIENT NEGATIVE (NEGATIVE)
[2019-08-18 15:55] LABS: ALBUMIN 3.9 g/dL (3.4-5.0); ALBUMIN/GLOBULIN RATIO 1.1 (1.0-1.7); TOTAL BILIRUBIN 0.3 mg/dL (0.2-1.0); TOTAL PROTEIN 7.4 g/dL (6.4-8.2)
[2019-08-18] MEDS ORDERED: cefTRIAXone IV Push 1 GM VIAL. IVP ONE ×2 (16:12→16:30)
--- NOTE | 2019-08-18 16:12 | RAD ---
Exam: Chest 2 views INDICATION: Cough and shortness of breath TECHNIQUE: Frontal and lateral views the chest Comparisons: None FINDINGS: The cardiomediastinal silhouette and pulmonary vessels are within normal limits. The lung and pleural spaces are clear. IMPRESSION: No acute cardiopulmonary process. Electronically signed by: Glendy Art MD (08/18/2019 4:09 PM) [facility]
[2019-08-18 16:30] VITALS: BP 158/82
[2019-08-18] MEDS ORDERED: AZIT250T PO (16:36)
[2019-08-18] MEDS ORDERED: BENZ100C PO (16:36)
[2019-08-18] MEDS ORDERED: METH4TAB2 PO (16:36)
--- NOTE | 2019-08-20 07:35 | EKG ---
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
== END 2019-08-18 16:51 | disposition home or self-care (01) ==
LOC: ER 14:44
DX: J45.901 Unspecified asthma with (acute) exacerbation (principal); J06.9 Acute upper respiratory infection, unspecified; I16.0 Hypertensive urgency; I48.20 Chronic atrial fibrillation, unspecified; E66.01 Morbid (severe) obesity due to excess calories; Z68.42 Body mass index [BMI] 45.0-49.9, adult; E78.00 Pure hypercholesterolemia, unspecified; I10 Essential (primary) hypertension; Z88.5 Allergy status to narcotic agent
CPT/HCPCS: 36415; 71046; 80053; 82550; 83605; 83880; 84484; 85025; 87040; 87804; 93005; 94640; 96374; 96375; 99285; J0360; J0696; J2930; J3010; J7644

== ENCOUNTER → 2019-09-05 | Outpatient (CLI) | payer OTHER ==
[2019-08-18 16:30] VITALS: BP 158/82
[~2019-09-05] MED LIST changes: +AZIT250T PO; +IOHEXOL 180 MG/ML 10 ML VIAL. ONE; +METH4TAB2 PO; +methylPREDNISolone ACETATE 40 MG/ML VIAL. ONE; +methylPREDNISolone ACETATE 80 MG/ML VIAL. ONE
--- NOTE | 2019-09-05 11:17 | PAIN ---
DATE OF SERVICE: 09/05/2019 PROGRESS NOTE FOR PAIN CLINIC DIAGNOSES: Lumbar radiculopathy with lumbar degenerative disk disease. HISTORY OF PRESENT ILLNESS: The patient is a 49-year-old male who returns for followup status post evaluation and preauthorization for lumbar epidural steroid injection, also holding his Eliquis with clearance. For this, he obtained, has been holding it for the past 3 days, returns and reporting significant pain still in the low back and in the left lower extremity as it was previously in posterior gluteus, posterior thigh, posterior calf and into the knee on the right as well. The patient reports the pain is a 7 on a scale of 10 at all times, average, worst and least over the past week and is a 7 today. The patient reports it is dull, constant, tingling and cramping in the leg with shooting pain in the leg as well with worse with walking, standing, changing positions. The patient reports it awakens him from sleep about every 3 hours. No new motor or sensory deficits. No new bowel or bladder incontinence or other complaints. PHYSICAL EXAMINATION: VITAL SIGNS: The patient's blood pressure 147/87, pulse 74, respirations 18, temperature 98.4 degrees Fahrenheit, height is 5 feet 10 inches, weight is 316 pounds. GENERAL: The patient is awake, alert, oriented, appropriate, very pleasant demeanor. HEENT: Shows normocephalic, atraumatic. Extraocular movements are intact and symmetrical. Oral cavity shows mucous membranes moist and pink. Dentition is intact. NECK: Shows anterior throat supple without palpable lymphadenopathy noted. Swallow reflex symmetrical. CHEST: Shows normal on inspection. Breath sounds are clear bilaterally. HEART: Shows S1, S2 clear. No murmurs auscultated. ABDOMEN: Soft, nontender, nondistended. No palpable organomegaly is noted. No rebound or guarding demonstrated. BACK: Shows spine grossly in the midline, normal appearing thoracic kyphosis and lumbar lordotic curvatures. Lumbar paraspinous muscle shows symmetrical on inspection, on palpation shows some moderate tenderness diffusely bilaterally, but only diffusely without significant radiation. EXTREMITIES: The patient's lower extremities show deep tendon reflexes at 2+ in the patella, 1+ tendo-calcaneus tendons. Motor exam is approximately 4 on a scale of 5 with left dorsiflexion, extension, 5/5 on the right. Peripheral pulses are 1+ in posterior tibia. No peripheral edema is noted bilaterally. Options were discussed with the patient. The patient's old chart was reviewed as his current medication regimen updated. Current review of systems updated today as well. We will proceed with a lumbar epidural steroid injection today with fluoroscopic guidance. Risks were again discussed including, but not limited to bleeding, infection, possibility of epidural hematoma, subsequent neurological compromise, dural puncture, headaches, spinal cord and/or nerve damage, side effects of steroid medication and poor results regarding pain control. The patient understands and wished to proceed. The patient will return to clinic in approximately 2 weeks for followup. He was counseled on return appointment, activity level and side effects to be aware of. The patient will restart his Eliquis tomorrow as instructed. DIAGNOSES: Lumbar radiculopathy with lumbar degenerative disk disease. PROCEDURE: Lumbar epidural steroid injection, translaminar approach L5-S1 level using C-arm fluoroscopic guidance under sterile prep and drape using local anesthetic. MEDICATION INJECTED: A total of 120 mg of Depo-Medrol plus 10 mL of preservative-free normal saline and 2 mL of contrast. CONDITION AT DISCHARGE: Stable. The patient tolerated the procedure well, had no complications. LAITH BEYER MD DR: TOSHA/nts JOB#: [id number] / [id number]
== END ==
LOC: PNCL 08:52
PROVIDERS: ATTEND Anesthesiology
DX: M51.16 Intervertebral disc disorders with radiculopathy, lumbar region (principal)
CPT/HCPCS: 62323; J1030; J1040; Q9965

== ENCOUNTER 2019-09-19 10:31 | Emergency (ER) | payer OTHER ==
[~2019-09-19] VITALS: Ht 177.8 cm; Wt 147.9 kg
[~2019-09-19 10:31] MED LIST changes: -POLY10DR EACHEYE
[2019-09-19 10:46] VITALS: BP 156/86
[2019-09-19] MEDS ORDERED: POLY10DR EACHEYE (11:39)
--- NOTE | 2019-09-19 11:40 | PHYS DOC ---
Past Medical History Past Medical History: A-Fib, Asthma, High Cholesterol, Hypertension, Other Additional Past Medical Histor: HEYDI KNEE PAIN Past Surgical History: Other Additional Past Surgical Histo: right 3rd fingernail removed, Umbilical Hernia repair Alcohol Use: None Drug Use: None Adult General Chief Complaint Chief Complaint: EYE PROBLEMS [facility] HPI Patient is a 49 year old male, accompanied by his , who presents to the emergency department with complaints of bilateral redness of eyes, eye itching, and crusting of eyelashes for the last 2 days. Patient denies any known injury, or activity where a foreign body may have gotten into his eyes. He d enies any recent standing, automotive work, welding, working with metal, or yardwork. He denies any vision changes. He states that the discomfort is a burning sensation and currently rates the pain 8 out of 10 on the pain scale, he denies any alleviating factors. He denies any recent fever, cough, shortness of breath, nausea, vomiting, diarrhea, or abdominal pain. All other ROS is neg unless otherwise noted in HPI. Review of Systems Review of Systems See Above Allergies Allergies Allergies Coded Allergies Type Severity Reaction Last Updated Verified morphine Allergy Severe Shortness of Air 01/08/19 Yes Physical Exam Physical Exam See Above Constitutional: Well developed, well nourished, no acute distress, non-toxic appearance. [] HENT: Normocephalic, atraumatic, bilateral external ears normal, oropharynx moist, no oral exudates, nose normal. [] Eyes: PERRLA, EOMI, conjunctiva injected bilaterally, watery discharge, mild edema of bilateral upper eyelids Neck: Normal range of motion, no stridor. [] Cardiovascular:Heart rate regular rhythm Lungs & Thorax: Bilateral breath sounds clear to auscultation, Respirations even and unlabored, no retractions, no respiratory distress [] Skin: Warm, dry, no erythema, no rash. [] Extremities: No cyanosis, ROM intact Neurologic: Alert and oriented X 3, no focal deficits noted. [] Psychologic: Affect normal, judgement normal, mood normal. [] Current Patient Data Vital Signs Vital Signs Date Time Temp Pulse Resp B/P (MAP) Pulse Ox O2 Delivery O2 Flow Rate FiO2 09/19/19 10:46 98.3 65 20 156/86 (109) 97 Room Air 98.3 EKG EKG [] Radiology/Procedures Radiology/Procedures [] Course & Med Decision Making Course & Med Decision Making Pertinent Labs and Imaging studies reviewed. (See chart for details) [] Dragon Disclaimer Dragon Disclaimer This electronic medical record was generated, in whole or in part, using a voice recognition dictation system. Departure Departure Impression: Primary Impression: Acute conjunctivitis of both eyes Disposition: HOME, SELF-CARE Condition: STABLE Referrals: ZELDA VALENZUELA MD (PCP) Patient Instructions: Conjunctivitis (Viral and Bacterial) Additional Instructions: Fill the prescription(s) and use as directed. Apply warm, moist washcloths to eyes needed for comfort. Recommend use of baby shampoo to wash eyelids. Follow- up with your primary care doctor in 1-2 days. Return to the emergency room if your symptoms worsen. Scripts Polymyxin B Sulf/Trimethoprim (POLYTRIM EYE DROPS) 10 Ml Drops 2 DROP EACHEYE Q6HRS for 7 Days, #10 ML 0 Refills Prov: KAILYN ZALDIVAR APRN 09/19/19 Problem Qualifiers Primary Impression: Acute conjunctivitis of both eyes Acute conjunctivitis type: unspecified Qualified Codes: H10.33 - Unspecified acute conjunctivitis, bilateral KAILYN ZALDIVAR APRN Sep 19, 2019 11:39
== END 2019-09-19 11:45 | disposition home or self-care (01) ==
LOC: ER 10:31
DX: H10.33 Unspecified acute conjunctivitis, bilateral (principal); I48.91 Unspecified atrial fibrillation; E78.00 Pure hypercholesterolemia, unspecified; I10 Essential (primary) hypertension; J45.909 Unspecified asthma, uncomplicated; Z88.5 Allergy status to narcotic agent
CPT/HCPCS: 99283

== ENCOUNTER → 2019-09-19 | Outpatient (CLI) | payer OTHER ==
[~2019-09-19] MED LIST changes: -DIGO125T PO; +DIGO125T3 PO; -IOHEXOL 180 MG/ML 10 ML VIAL. ONE; +OMEP-229 PO; -OMEP20CA10 PO; +POLY10DR EACHEYE; -methylPREDNISolone ACETATE 40 MG/ML VIAL. ONE; -methylPREDNISolone ACETATE 80 MG/ML VIAL. ONE
--- NOTE | 2019-09-19 11:54 | PAIN ---
DATE OF SERVICE: 09/19/2019 PROGRESS NOTE FOR PAIN CLINIC DIAGNOSES: Lumbar radiculopathy with lumbar degenerative disk disease. HISTORY OF PRESENT ILLNESS: The patient is a 49-year-old male who returns for followup status post lumbar epidural steroid injection x 1. The patient reports significant improvement only for a few days following the injection with pain returning fairly significantly in the low back and into the left lower extremity greater than right. The patient reports it is worse with walking, standing, changing positions, becoming more constant with activity, better with sitting or lying down, was awakening him from sleep about every 3-4 hours. The patient reports it is tingling, burning, cramping, becoming more constant in the back and the legs, mostly in the posterior gluteus, posterior thighs and calves, again worse on the left. The patient reports it is 7 on a scale of 10 at all times, worst, least and average and is a 7 today. The patient reports no new motor or sensory deficits. No new bowel or bladder incontinence. PHYSICAL EXAMINATION: VITAL SIGNS: The patient's blood pressure 177/101, pulse 66, respirations 18, temperature 98.4 degrees Fahrenheit, height is 5 feet 10 inches, weight is 314 pounds. GENERAL: The patient is awake, alert, oriented, appropriate, very pleasant demeanor. The patient is accompanied by his spouse. HEENT: Shows normocephalic, atraumatic. Extraocular movements are intact and symmetrical. Oral cavity: Mucous membranes moist and pink. Dentition is intact. NECK: Shows anterior throat supple without palpable lymphadenopathy noted. Swallow reflex symmetrical. CHEST: Shows normal on inspection. Breath sounds clear to auscultation bilaterally. HEART: Shows S1, S2 clear. No murmurs auscultated. ABDOMEN: Soft, nontender, nondistended. BACK: Shows spine grossly in the midline. Normal appearing thoracic kyphosis, some minor flattening of lumbar lordotic curvature. Lumbar paraspinous muscle shows symmetrical on inspection, with palpation shows some diffuse tenderness throughout the upper, middle and lower distribution of paraspinous muscles bilaterally, but only diffusely without significant radiation. The patient has good rotational motion of lumbar spine, both laterally as well as extension and flexion without significant difficulty. EXTREMITIES: Lower extremities show deep tendon reflexes 2+ in the patellar, 1+ tendo-calcaneus tendons. Motor exam is approximately 4 on a scale of 5 with left dorsiflexion, extension, 5/5 on the right. Peripheral pulses are 1+ posterior tibia. No peripheral edema is noted. Options were discussed with the patient. The patient's old chart was reviewed as his current medication regimen updated. Current review of systems updated today as well. We will preauthorize the patient for a second lumbar epidural steroid injection as he still has clinical radiculopathy in the L5-S1 dermatomal distribution with improvement for several days following the first injection, but then the pain returning fairly significantly with overall 30% improvement. We will plan for second lumbar epidural steroid injection, translaminar approach L5-S1 level. The patient will continue with his Eliquis until preauthorization is obtained and we will have him hold this for 3 days once again as cleared previously and have him return for lumbar epidural steroid injection at that time. LAITH BEYER MD DR: TOSHA/cherelle JOB#: [id number] / [id number]
== END | disposition home or self-care (01) ==
LOC: PNCL 09:03
PROVIDERS: ATTEND Anesthesiology
DX: M51.16 Intervertebral disc disorders with radiculopathy, lumbar region (principal)
CPT/HCPCS: G0463

== ENCOUNTER → 2019-11-16 | Outpatient (CLI) | payer OTHER ==
[~2019-11-16] MED LIST changes: +CLAR-7 PO; -CLAR500T PO; -OMEP-229 PO; +OMEP20CA16 PO; +POLY10DR EACHEYE; +PROM5SYR2 PO
--- NOTE | 2019-11-16 10:52 | KCIC ---
MRI Lumbar Spine without contrast History: Low back pain, worsening lower extremity numbness and tingling bilaterally Technique: Multiplanar, multi sequential noncontrast MR imaging was performed of the lumbar spine. Comparison: May 10, 2019 Findings: There is motion degradation even for repeated images. Lumbar vertebral body stature and AP alignment are maintained. Not associated with significant spondylolisthesis, there is suspected bilateral L5 spondylolysis as as seen previously. There is again mild disc desiccation L5-S1. Conus terminates near L1. There is nonspecific edema of the posterior subcutaneous fat of the lower back as seen previously. There is no convincing new focal marrow edema. There is again anterior annular tear at L3-4. There is 1.6 cm T2 hyperintense focus of the left kidney, statistically more likely a cyst. L1-L2: Neural foramina and spinal canal are adequate. L2-L3: Neural foramina and spinal canal are adequate. There is mild prominence of posterior epidural fat centrally. There is again negligible disc osteophyte complex. L3-L4: Spinal canal and neural foramina are adequate. There is prominence of posterior epidural fat centrally. L4-L5: There is minimal fluid in the facet articulations bilaterally as seen previously. Spinal canal is adequate. There is negligible disc osteophyte complex contributing to minimal narrowing of the inferior left neural foramen, right neural foramen overall adequate. L5-S1: There is again minimal disc osteophyte complex and shallow protrusion, no impingement descending S1 nerve roots. Spinal canal is adequate. There is mild facet degenerative change greater on the left, again some fluid in the facet articulations bilaterally. There is moderate to severe narrowing of the left neural foramen by disc osteophyte complex and facet with contact of the exiting left L5 nerve root.. There is [id number] narrowing of the right neural foramen, again degree of contact exiting right L5 nerve root. There is again likely disc osteophyte complex on the left laterally near the extraforaminal left L5 nerve root. Impression: 1. Findings are similar comparing with the April 2018 exam. There is again left greater than right L5-S1 neural foramina compromise with degree of contact of the exiting L5 nerve roots greater on the left. There is no new significant lumbar spinal stenosis. There is again facet degenerative change at L4-5 and L5-S1. Not associated with significant spondylolisthesis, there is probable bilateral L5 spondylolysis. 2. T2 hyperintense lesion of the left kidney is statistically more likely a cyst. Electronically signed by: Atif Casillas MD (11/16/2019 10:49 AM) [facility]
== END | disposition home or self-care (01) ==
LOC: KCIC MRI 09:09
PROVIDERS: ATTEND Neurological Surgery
DX: M51.27 Other intervertebral disc displacement, lumbosacral region (principal); M47.817 Spondylosis without myelopathy or radiculopathy, lumbosacral region; M48.07 Spinal stenosis, lumbosacral region; M25.78 Osteophyte, vertebrae
CPT/HCPCS: 72148

== ENCOUNTER 2019-11-20 17:47 | Emergency (ER) | payer OTHER ==
[~2019-11-20] VITALS: Ht 177.8 cm; Wt 145.4 kg
[~2019-11-20 17:47] MED LIST changes: -PROM5SYR2 PO
[2019-11-20] MEDS ORDERED: KETOROLAC 30 MG/ML VIAL. IVP ONE (18:45)
[2019-11-20] MEDS ORDERED: IV NORMAL SALINE 1000ML BAG 1,000 ML IV ONE (18:45)
[2019-11-20] MEDS ORDERED: IPRATRPIUM/ALBUTEROL 0.5/2.5MG 3 ML NEBU. NEB ONE (18:45)
[2019-11-20 18:58] LABS: BASO % 1 % (0-3); EOS % 0 % (0-3); HEMATOCRIT 43.5 % (39.0-53.0); HEMOGLOBIN 14.9 g/dL (13.0-17.5); LYMPH % 10 % (24-48); MEAN CORPUSCULAR HEMOGLOBIN 29 pg (25-35); MEAN CORPUSCULAR HGB CONC 34 g/dL (31-37); MEAN CORPUSCULAR VOLUME 85 fL (79-100); MONO # 0.4 x10^3/uL (0.0-1.1); MONO % 5 % (0-9); NEUT # 8.2 x10^3/uL (1.8-7.7); NEUT % 85 % (31-73); PLATELET COUNT 198 x10^3/uL (140-400); RED CELL DISTRIBUTION WIDTH 13.7 % (11.5-14.5); WHITE BLOOD COUNT 9.6 x10^3/uL (4.0-11.0)
[2019-11-20 19:05] LABS: CALCIUM 9.1 mg/dL (8.5-10.1); CREATININE 1.3 mg/dL (0.7-1.3); GFR 58.4; POTASSIUM 4.6 mmol/L (3.5-5.1)
[2019-11-20 19:11] LABS: ALBUMIN 3.9 g/dL (3.4-5.0); ALBUMIN/GLOBULIN RATIO 1.3 (1.0-1.7); TOTAL BILIRUBIN 0.2 mg/dL (0.2-1.0)
--- NOTE | 2019-11-20 19:30 | PHYS DOC ---
Past Medical History Past Medical History: A-Fib, Asthma, High Cholesterol, Hypertension, Other Additional Past Medical Histor: HEYDI KNEE PAIN Past Surgical History: Other Additional Past Surgical Histo: right 3rd fingernail removed, Umbilical Hernia repair Alcohol Use: None Drug Use: None Adult General Chief Complaint Chief Complaint: FLU SYMPTOM HPI HPI Patient is a 49 year old L with history of A. fib, asthma who presents with persistent cough, chest discomfort and sweats for the past several days. Patient has been evaluated by his primary care provider and is currently taking a Medrol dose pack and an unspecified antibiotics. Patient I plan with treatment but stat es symptoms have not improved. This afternoon, the patient reports directed coughing episode accompanied with syncope. Patient did fall bruising his right forearm. Denies hitting his head, headache or neck pain. Denies chest wall injury or abdominal pain. No measured fever today. No other acute symptoms or complaints. [] Review of Systems Review of Systems ROS as per HPI All other systems were reviewed and found to be within normal limits, except as documented in this note. Current Medications Current Medications Current Medications Medications (Trade) Dose Ordered Sig/Jhon Start Time Stop Time Status Last Admin Dose Admin Albuterol/ Ipratropium (Duoneb) 3 ml 1X ONCE 11/20/19 18:45 11/20/19 18:46 DC 11/20/19 19:03 3 ML Ketorolac Tromethamine (Toradol 30mg Vial) 30 mg 1X ONCE 11/20/19 18:45 11/20/19 18:46 DC 11/20/19 18:59 30 MG Sodium Chloride 1,000 ml @ 1,000 mls/hr 1X ONCE 11/20/19 18:45 11/20/19 19:44 DC 11/20/19 19:00 1,000 MLS/HR Allergies Allergies Allergies Coded Allergies Type Severity Reaction Last Updated Verified morphine Allergy Severe Shortness of Air 01/08/19 Yes Physical Exam Physical Exam Constitutional: Well developed, well nourished, no acute distress, non-toxic appearance. [] HENT: Normocephalic, atraumatic, bilateral external ears normal, oropharynx moist, no oral exudates, nose normal. [] Eyes: PERRLA, EOMI, conjunctiva normal, no discharge. [] Neck: Normal range of motion, no tenderness. [] Cardiovascular:Heart rate regular rhythm, no murmur [] Lungs & Thorax: Rations nonlabored, occasional rhonchi but otherwise clear no rales or wheezes. Chest wall tenderness.[] Abdomen: Bowel sounds normal, soft, no tenderness. [] Skin: Warm, dry, no erythema, no rash. [] Back: No tenderness, no CVA tenderness. [] Extremities: Right forearm, soft tissue tenderness over flexor surface, no deformity or bruising appreciated.. [] Neurologic: Alert and oriented X 3, normal motor function, normal sensory function, no focal deficits noted. [] Psychologic: Affect normal, judgement normal, mood normal. [] Current Patient Data Vital Signs Vital Signs Date Time Temp Pulse Resp B/P (MAP) Pulse Ox O2 Delivery O2 Flow Rate FiO2 11/20/19 21:30 79 160/80 (106) 98 Room Air 11/20/19 18:32 98.8 20 98.8 Lab Values Laboratory Tests Test 11/20/19 18:49 White Blood Count 9.6 x10^3/uL (4.0-11.0) Red Blood Count 5.10 x10^6/uL (4.30-5.70) Hemoglobin 14.9 g/dL (13.0-17.5) Hematocrit 43.5 % (39.0-53.0) Mean Corpuscular Volume 85 fL (79-100) Mean Corpuscular Hemoglobin 29 pg (25-35) Mean Corpuscular Hemoglobin Concent 34 g/dL (31-37) Red Cell Distribution Width 13.7 % (11.5-14.5) Platelet Count 198 x10^3/uL (140-400) Neutrophils (%) (Auto) 85 % (31-73) H Lymphocytes (%) (Auto) 10 % (24-48) L Monocytes (%) (Auto) 5 % (0-9) Eosinophils (%) (Auto) 0 % (0-3) Basophils (%) (Auto) 1 % (0-3) Neutrophils # (Auto) 8.2 x10^3/uL (1.8-7.7) H Lymphocytes # (Auto) 1.0 x10^3/uL (1.0-4.8) Monocytes # (Auto) 0.4 x10^3/uL (0.0-1.1) Eosinophils # (Auto) 0.0 x10^3/uL (0.0-0.7) Basophils # (Auto) 0.0 x10^3/uL (0.0-0.2) Sodium Level 140 mmol/L (136-145) Potassium Level 4.6 mmol/L (3.5-5.1) Chloride Level 103 mmol/L (98-107) Carbon Dioxide Level 24 mmol/L (21-32) Anion Gap 13 (6-14) Blood Urea Nitrogen 12 mg/dL (8-26) Creatinine 1.3 mg/dL (0.7-1.3) Estimated GFR (Cockcroft-Gault) 58.4 BUN/Creatinine Ratio 9 (6-20) Glucose Level 212 mg/dL (70-99) H Calcium Level 9.1 mg/dL (8.5-10.1) Total Bilirubin 0.2 mg/dL (0.2-1.0) Aspartate Amino Transferase (AST) 16 U/L (15-37) Alanine Aminotransferase (ALT) 29 U/L (16-63) Alkaline Phosphatase 83 U/L (46-116) Troponin I Quantitative < 0.017 ng/mL (0.000-0.055) C-Reactive Protein, Quantitative 13.6 mg/L (0-3.3) H XB-Wnl-D-Type Natriuretic Peptide 25 pg/mL (0-124) Total Protein 7.0 g/dL (6.4-8.2) Albumin 3.9 g/dL (3.4-5.0) Albumin/Globulin Ratio 1.3 (1.0-1.7) Laboratory Tests 11/20/19 18:49 Laboratory Tests 11/20/19 18:49 EKG EKG [EKG: reviewed] Radiology/Procedures Radiology/Procedures [CXR: NAD] Course & Med Decision Making Course & Med Decision Making Pertinent Labs and Imaging studies reviewed. (See chart for details) [Cough syncope. Symptoms improved with treatment. Recommend continued buttocks, steroids and supportive care with close PCP follow-up. Return precautions reviewed.] Dragon Disclaimer Dragon Disclaimer This electronic medical record was generated, in whole or in part, using a voice recognition dictation system. Departure Departure Impression: Primary Impression: Acute bronchitis Additional Impression: Syncope Disposition: 01 HOME, SELF-CARE Condition: STABLE Referrals: ZELDA VALENZUELA MD (PCP) Scripts Promethazine HCl/Codeine (Prometh-Codein 6.25-10 mg/5 ml) 5 Ml Syrup 10 ML PO Q6HRS PRN for cough MDD 30 Milliliter(s), #240 ML 0 Refills Prov: DEEPAK MARINELLI DO 11/20/19 Problem Qualifiers DEEPAK MARINELLI DO Nov 20, 2019 19:30
--- NOTE | 2019-11-20 21:05 | RAD ---
Exam: Chest 2 views INDICATION: Shortness of air TECHNIQUE: Frontal and lateral views the chest Comparisons: 08/18/2019 FINDINGS: The cardiomediastinal silhouette and pulmonary vessels are within normal limits. The lung and pleural spaces are clear. IMPRESSION: No acute cardiopulmonary process. Electronically signed by: Glendy Art MD (11/20/2019 9:02 PM) [facility]
[2019-11-20 21:30] VITALS: BP 160/80
[2019-11-20] MEDS ORDERED: PROM5SYR2 PO (21:44)
== END 2019-11-20 21:50 | disposition home or self-care (01) ==
LOC: ER 17:47
DX: J20.9 Acute bronchitis, unspecified (principal); R55 Syncope and collapse; J45.909 Unspecified asthma, uncomplicated; I48.91 Unspecified atrial fibrillation; E78.00 Pure hypercholesterolemia, unspecified; I10 Essential (primary) hypertension; Z88.5 Allergy status to narcotic agent
CPT/HCPCS: 36415; 71046; 80053; 83880; 84484; 85025; 86140; 94640; 96361; 96374; 99285; J1885; J7030; J7620

== ENCOUNTER 2019-12-22 11:29 | Emergency (ER) | payer OTHER ==
[~2019-12-22] VITALS: Ht 165.1 cm; Wt 144.1 kg
[~2019-12-22 11:29] MED LIST changes: +PROM5SYR2 PO
[2019-12-22 11:30] VITALS: BP 172/101
== END 2019-12-22 12:38 | disposition left against medical advice (07) ==
LOC: ER 11:29
DX: M79.604 Pain in right leg (principal); M79.605 Pain in left leg; Z53.21 Procedure and treatment not carried out due to patient leaving prior to being seen by health care provider

== ENCOUNTER → 2020-02-22 | Outpatient (CLI) | payer OTHER ==
[~2020-02-22] MED LIST changes: +CONTRAST GIVEN. MC PRN; +IOHEXOL 180 MG/ML 10 ML VIAL. IJ ONE
[2020-02-22 09:40] VITALS: BP 163/80
[2020-02-22 10:13] VITALS: BP 169/79
--- NOTE | 2020-02-22 10:20 | NUR ---
pt A&O x4. denies pain, headache or any issues with legs. VSS. site on mid lower back - bandaid dry and clean. reviewed d/c instructions with pt. pt left unit with his - ambulating with his cane w/o problem. his to drive him home
--- NOTE | 2020-02-22 10:49 | RAD ---
Examination: Lumbar myelogram. INDICATION: 50-year-old man complains of back pain and bilateral lower extremity pain and weakness. COMPARISON: L-spine MRI of 11/16/2019. TECHNIQUE: For the lumbar myelogram, informed consent was obtained and an appropriate procedural pause observed. Using standard sterile technique, fluoroscopic imaging guidance and local anesthesia, a 10 cm 22-gauge spinal needle was placed in the central canal from a left L1-L2 interlaminar approach and a total of 15 mL of Omnipaque 180 were administered into the lumbar spinal canal. Prone, bilateral anterior oblique, upright lateral and upright lateral flexion and extension views of the lumbar spine were also obtained. Total fluoroscopy time was 2.7 minutes. 9 images were acquired for procedural documentation. FINDINGS: Satisfactory opacification of the lumbar spinal thecal sac was achieved. There was no significant spinal stenosis demonstrated. No abnormal motion identified with flexion or extension. IMPRESSION: Successful fluoroscopically guided lumbar myelogram showing no significant central canal stenosis or abnormal motion of the lumbar spine. EXAM: CT Lumbar Spine with intrathecal contrast INDICATION: 50-year-old man complains of back pain and bilateral lower extremity pain and weakness. TECHNIQUE: Multi-detector row CT images were obtained through the lumbar spine following prior intrathecal contrast administration. Post-processing sagittal and coronal reconstructed images were obtained for interpretation. All CT scans performed at this facility utilize dose optimization techniques as appropriate to the exam, including the following: Automated exposure control and adjustment of the mA and/or KV according to patient size (this includes techniques or standardized protocols for targeted exams where dose is indication/reason for exam). COMPARISON: MR lumbar spine of 11/16/2019 FINDINGS: The lowest fully formed disc is referred to as the L5-S1 level. ALIGNMENT: Alignment is within normal limits. OSSEOUS: There are chronic bilateral pars defects at L5. 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 DISC SPACES: Mild multilevel disc bulging with loss of height is present. FACET JOINTS: Mild facet degenerative changes at L5-S1, left greater than right are present. SPINAL CANAL: Conus terminates at L1. There is no nodularity to the cauda equina or filling defects in the thecal sac. No dilated perimedullary veins in the included field of view. The central canal is widely patent throughout the lumbar spine.. NEUROFORAMINA: Disc bulging and mild loss of height at multiple levels results in the following: At L1-L2, no stenosis. At L2-L3, mild diffuse disc bulge with loss of height results in mild bilateral foraminal narrowing. At L3-L4, diffuse disc bulge with minimal loss of height results in mild bilateral foraminal narrowing. At L4-L5, mild diffuse disc bulge with slight loss of height results in moderate At L5-S1, bilateral diffuse disc bulge with loss of height along with facet hypertrophic change results in deformity of the bilateral neural foramina and moderate to severe bilateral foraminal narrowing. At this level also, bilateral lateral recess narrowing is apparent. Bilateral foraminal narrowing SOFT TISSUES: Unremarkable. IMPRESSION: Relatively mild multilevel lumbar spinal degenerative changes, most conspicuously at the L5-S1 level where combination of bilateral chronic pars defects and mild diffuse disc bulge with loss of height results in moderate to severe bilateral foraminal narrowing and bilateral lateral recess narrowing despite wide central canal patency. Electronically signed by: Elle Capone MD (02/22/2020 10:47 AM) [id number]
== END | disposition home or self-care (01) ==
LOC: RAD 07:48
PROVIDERS: ATTEND Neurological Surgery
DX: M47.817 Spondylosis without myelopathy or radiculopathy, lumbosacral region (principal); M48.07 Spinal stenosis, lumbosacral region
CPT/HCPCS: 72132; 72265; Q9965

== ENCOUNTER 2020-09-19 15:30 | Emergency (ER) | payer OTHER ==
[~2020-09-19] VITALS: Ht 177.8 cm; Wt 136.3 kg
[~2020-09-19 15:30] MED LIST changes: -CONTRAST GIVEN. MC PRN; -IOHEXOL 180 MG/ML 10 ML VIAL. IJ ONE
[2020-09-19 20:17] LABS: INFLUENZA A PATIENT NEGATIVE (NEGATIVE); INFLUENZA B PATIENT NEGATIVE (NEGATIVE)
--- NOTE | 2020-09-19 20:20 | RAD ---
Exam: Chest one view INDICATION: Short of air TECHNIQUE: Frontal view of the chest Comparisons: 11/20/2019 FINDINGS: The cardiomediastinal silhouette and pulmonary vessels are within normal limits. Strandy opacities at the right lung base. No pleural effusion IMPRESSION: Right basilar atelectasis. Electronically signed by: Glendy Art MD (09/19/2020 8:17 PM) JANNET
[2020-09-19 20:26] VITALS: BP 200/112
[2020-09-19] MEDS ORDERED: DEXAMETHASONE SOD PHOS 20 MG/5 ML VIAL. PO ONE (20:45)
[2020-09-19] MEDS ORDERED: ALBU2.5V5 NEB (20:52)
[2020-09-19] MEDS ORDERED: METH4TAB2 PO (20:52)
[2020-09-19] MEDS ORDERED: ALBU2.5V8 IH (20:52)
[2020-09-19] MEDS ORDERED: AZIT250T6 PO (20:52)
--- NOTE | 2020-09-19 20:53 | ED.ADGEN ---
Past Medical History Past Medical History: A-Fib, Asthma, High Cholesterol, Hypertension, Other Additional Past Medical Histor: HEYDI KNEE PAIN Past Surgical History: Other Additional Past Surgical Histo: right 3rd fingernail removed, Umbilical Hernia repair Smoking Status: Never Smoker Alcohol Use: None Drug Use: None General Adult EDM: Chief Complaint: SHORTNESS OF BREATH HPI: HPI: Patient is a 50 year old male who presents emergency department with complaints of a sore throat, dry cough, shortness of breath, and red eyes. Patient states he has been coughing up green sputum with his cough. He states that his cough and shortness of breath began 1 week ago. Denies any known exposure to anyone with COVID-19. He denies any fever, headache, fatigue, rash, palpitations, abdominal pain, chest pain, or edema. Patient reports a history of asthma, he feels like it is his asthma that has been bothering him. Patient states he needs new tubing and albuterol vials for his nebulizer. He denies having any nausea, vomiting, or diarrhea. He currently rates his pain a 10 out of 10 on the pain scale and describes it as generalized aching and a sore throat. Patient states that his chest does feel tight at times. Review of Systems: Review of Systems: Complete ROS is negative unless otherwise noted in HPI. Current Medications: Current Medications Medications (Trade) Dose Ordered Sig/Jhon Start Time Stop Time Status Last Admin Dose Admin Dexamethasone Sodium Phosphate (Decadron) 10 mg 1X ONCE 09/19/20 20:45 09/19/20 20:48 DC 09/19/20 21:27 10 MG Allergies: Allergies: Allergies Coded Allergies Type Severity Reaction Last Updated Verified morphine Allergy Severe Shortness of Air 01/08/19 Yes Physical Exam: PE: See Above Constitutional: Well developed, well nourished, no acute distress, ill appearance, obese HENT: Normocephalic, atraumatic, bilateral external ears normal, nose congested Eyes: PERRLA, conjunctiva injected bilaterally, no discharge. [] Neck: Normal range of motion, no stridor. [] Cardiovascular:Heart rate regular rhythm Lungs & Thorax: Respirations even and unlabored, no retractions, no respiratory distress Skin: Warm, dry, no erythema, no rash. [] Back: No tenderness Extremities: No cyanosis, ROM intact Neurologic: Alert and oriented X 3, no focal deficits noted. [] Psychologic: Affect normal, judgement normal, mood normal. Current Patient Data: Labs: Laboratory Tests Test 09/19/20 19:49 Influenza Type A Antigen Negative (NEGATIVE) Influenza Type B Antigen Negative (NEGATIVE) Vital Signs: Vital Signs Date Time Temp Pulse Resp B/P (MAP) Pulse Ox O2 Delivery O2 Flow Rate FiO2 09/19/20 20:26 100 200/112 (141) 99 Room Air 09/19/20 19:56 16 09/19/20 19:21 98.5 98.5 EKG: EK-sinus rhythm, rate of 99, no STEMI, read by Dr. Gilbert [] Heart Score: Risk Factors: Risk Factors: DM, Current or recent (<one month) smoker, HTN, HLP, family history of CAD, obesity. Risk Scores: Score 0 - 3: 2.5% MACE over next 6 weeks - Discharge Home Score 4 - 6: 20.3% MACE over next 6 weeks - Admit for Clinical Observation Score 7 - 10: 72.7% MACE over next 6 weeks - Early Invasive Strategies Radiology/Procedures: Radiology/Procedures: PROCEDURE: CHEST AP ONLY Exam: Chest one view INDICATION: Short of air TECHNIQUE: Frontal view of the chest Comparisons: 11/20/2019 FINDINGS: The cardiomediastinal silhouette and pulmonary vessels are within normal limits. Strandy opacities at the right lung base. No pleural effusion IMPRESSION: Right basilar atelectasis.[] Course & Med Decision Making: Course & Med Decision Making Pertinent Labs and Imaging studies reviewed. (See chart for details) 50-year-old male presents emergency department complaints. Chest x-ray is concerning for right infiltrate, patient declined admission to the hospital. His oxygen saturation remained above 90% throughout his stay fluctuated between 90 and 95%. The patient requested new tubing for his nebulizer and a refill of the nebulizer albuterol vials. Prescriptions were written for a Medrol Dosepak, Zithromax, albuterol, and an albuterol MDI patient was advised of the likelihood of COVID-19 and provided with quarantine instructions. I encouraged the patient to return to the ER if he develops fever or if his shortness of breath worsen. Patient verbalized an understanding of home care, medications, follow-up, and return to ED instructions and was in agreement with the plan of care. [] Dragon Disclaimer: Dragon Disclaimer: This electronic medical record was generated, in whole or in part, using a voice recognition dictation system. Departure Departure Impression: Primary Impression: CAP (community acquired pneumonia) Additional Impression: Person under investigation for COVID-19 Disposition: 01 DC HOME SELF CARE/HOMELESS Condition: STABLE Referrals: ZELDA VALENZUELA MD (PCP) Patient Instructions: Pneumonia, Adult, [id number] Additional Instructions: Fill prescription(s) and use as directed. Recommend use of a Cool mist humidifier in room at bedtime. Use the incentive spirometer that was provided to you twice an hour while you are awake. Alternate Tylenol or ibuprofen as needed for pain/fever. Increase clear fluids. Avoid airway triggers such as smoke, fragrance, dust, and pollen. May take [id number] cough suppressants as needed. Follow-up with your primary care doctor if symptoms persist, return to the ER if symptoms worsen. You have been tested for or diagnosed with COVID-19. It is an infection caused by a new type of coronavirus. COVID-19 will cause cold-like or mild flu symptoms in most. It can cause more severe symptoms like problems breathing in some. There is no treatment for COVID-19. The body will clear the infection over time. Self-care will help to ease discomfort. Steps to Take: Self-Care Rest as needed. Healthy habits may help you feel better. Steps include: Choose healthy foods including fruits and vegetables. Drink water throughout the day. Get plenty of sleep each night. If you smoke, try to quit. It may ease breathing. Avoid alcohol. Keep Others Healthy The virus can spread to others. Droplets are released every time you sneeze or cough. The droplets can get into the mouth, nose, or eyes of people near you and lead to infection. To lower the chances of spreading COVID-19 to others: Stay at home until your doctor has said it is safe to leave. If you tested positive this will mean staying isolated until both of the following are true: At least 7 days have passed since the start of illness. You are free of fever for at least 72 hours without the use of medicine. During this time: - Avoid public areas, events, or transportation. Do not return to work or school until your doctor has said it is safe to do so. - Call ahead if you need to go to a medical center. Let them know you may have COVID-19. It will help them guide you where to go. They may also ask you to wear a facemask when you come to the office. - If you call for emergency medical services, let them know you may have COVID- 19. While at home: - Try to avoid close contact with others. Stay about 6 feet away. - If possible, spend most of your time in a separate room from others. - Use a face mask if you will be in close contact with others such as sharing a room or vehicle. - Have someone wipe down common surfaces in the home. Use household construction job cost estimator every day on areas like doorknobs, counters, or sinks. - Cough or sneeze into a tissue. Throw the tissue away right after use. If a tissue is not available, cough or sneeze into your elbow. - Wash your hands often. Wash them after sneezing or coughing. Use soap and bur[place] er and wash for at least 20 seconds. Alcohol based hand globe cleaner can be used if soap and water is not available. - Do not prepare food for others. Avoid sharing personal items like forks, spoons, or toothbrushes. - Avoid close contact with pets while you are sick. There is no evidence of the virus passing to pets. This is a safety step until more is known about this virus. Isolation can be frustrating. Social interaction can help. Keep in touch with friends and family through phone and tech options. You can still interact with others in your home, just keep a safe distance of about 6 feet. Follow-up: Your doctors office will check in with you to see if there are any changes in your health. You may be asked to keep track of symptoms to share with them. They will also let you know when you are clear to be in public again. Problems to Look Out For: Contact your doctor if your recovery is not going as you expect. Get emergency care if you have problems such as: - Trouble breathing - Nonstop chest pain or pressure - Changes in awareness, confusion, or problems waking - Lips or face have bluish color - Worsening of symptoms If you think you have an emergency, call for emergency medical services right away. As taken from [facility] [place] [facility] Azithromycin (AZITHROMYCIN TABLET) 250 Mg Tablet 1 PKG PO UD for 5 Days, #6 TAB 0 Refills 2 the first day followed by 1 for days 2-5 Prov: KAILYN ZALDIVAR APRN 09/19/20 Methylprednisolone (MEDROL) 4 Mg Tab.ds.pk 1 PKG PO UD for 6 Days, #1 PKG 0 Refills Start taking on September 20, 2020 Prov: KAILYN ZALDIVAR APRN 09/19/20 Albuterol Sulfate (ALBUTEROL SULFATE NEB SOLN) 2.5 Mg/3 Ml Vial.neb 1 VIAL NEB PRN Q4HRS PRN for WHEEZING for 30 Days, #50 VIAL 1 Refill Prov: KAILYN ZALDIVAR APRN 09/19/20 Albuterol Sulfate (Proair Hfa) 8.5 Gm Hfa.aer.ad 2 PUFF IH PRN Q4-6HRS PRN for wheezing for 21 Days, #1 INHALER 0 Refills Prov: KAILYN ZALDIVAR APRN 09/19/20 Attending Signature Attending Signature I have reviewed the PA/JEEP DRIVER's note and plan of care. I was available for consultation as needed during the patient's visit in the emergency department. I agree with the clinical impression, plan, and disposition. Problem Qualifiers Primary Impression: CAP (community acquired pneumonia) Laterality: right Lung location: unspecified part of lung Qualified Codes: J18.9 - Pneumonia, unspecified organism KAILYN ZALDIVAR APRN Sep 19, 2020 20:53 GILBERTZELDA DO Sep 20, 2020 00:15
== END 2020-09-19 21:30 | disposition home or self-care (01) ==
LOC: ER 15:30
DX: U07.1 COVID-19 (principal); J18.9 Pneumonia, unspecified organism; I48.91 Unspecified atrial fibrillation; J45.909 Unspecified asthma, uncomplicated; E78.00 Pure hypercholesterolemia, unspecified; I10 Essential (primary) hypertension; Z98.890 Other specified postprocedural states; Z88.5 Allergy status to narcotic agent
CPT/HCPCS: 71045; 87804; 99285; C9803; J1100; U0003; 93005

== ENCOUNTER → 2021-11-06 | Outpatient (CLI) | payer OTHER ==
[~2021-11-06] MED LIST changes: +AZIT250T6 PO; -DOXY100C2 PO; +DOXY100C3 PO
--- NOTE | 2021-11-06 16:57 | RAD ---
US THYROID History: Reason: DYSPHAGIA / Spl. Instructions: / History: Comparison: None. Technique: Multiple grayscale and color Doppler images of the thyroid gland were obtained. Findings: Right thyroid lobe: 4.5 x 2.1 x 1.4 cm. Homogeneous echotexture. Left thyroid lobe: 3.3 x 1.7 x 1.6 cm. Homogeneous echotexture. Isthmus: 0.7 cm. -Right inferior thyroid hypoechoic nodule solid measures 1.3 x 0.7 x 0.7 cm. TI-RADS 4. ACR Thyroid Imaging, Reporting And Data System (TI-RADS): White Paper Of The ACR TI-RADS Committee. J ournal of the [employer], volume 14, issue 5, pages 587-595 (February 2017). IMPRESSION: 1. TI-RADS 4 right inferior thyroid nodule. Recommend one-year ultrasound follow-up. Electronically signed by: Elbert Fortune DO (11/06/2021 4:54 PM) [id number]
== END ==
LOC: US 15:04
PROVIDERS: ATTEND Family Medicine
DX: E04.1 Nontoxic single thyroid nodule (principal); R13.10 Dysphagia, unspecified
CPT/HCPCS: 76536

== ENCOUNTER → 2022-02-01 | Day surgery (SDC) | payer OTHER ==
[~2022-02-01] VITALS: Ht 177.8 cm; Wt 154.0 kg
[~2022-02-01] MED LIST changes: +BUPR100T11 PO; +CRESTOR5 MG PO; +IV RINGERS,LACTATED 1000ML 1,000 ML IV SCH; +LISI10TA16 PO; +PROCHLORPERAZINE 10 MG/2 ML VIAL. IVP PRN; +PROPOFOL 10 MG/ML (20ML) VIAL. IV ONE; +SERT50TA PO; +fentaNYL PF VIAL 100 MCG/2 ML VIAL IVP PRN
[2022-02-01 12:41] VITALS: BP 170/90
--- NOTE | 2022-02-01 14:06 | PDOC4 ---
PROCEDURE Procedure EGD Indication: heartburn, "dysphagia" Meds: per anesthesia Findings: E--Healed, likely erosive reflux at GEJ. G--Normal D--Normal to second portion. Romulo. well. Dilation not done as developed some respiratory distress; recovered promptly. IMP: GERD REC: Continue meds as now. F/u in 2 weeks. Consider barium swallow. ZELDA BLANTON MD Feb 01, 2022 14:06
[2022-02-01 14:23] VITALS: BP 165/88
== END | disposition home or self-care (01) ==
LOC: ENDOS 12:22
PROVIDERS: ATTEND Internal Medicine Gastroenterology
DX: R13.10 Dysphagia, unspecified (principal); R12 Heartburn; K21.00 Gastro-esophageal reflux disease with esophagitis, without bleeding; K31.89 Other diseases of stomach and duodenum; I10 Essential (primary) hypertension; E78.00 Pure hypercholesterolemia, unspecified; G47.30 Sleep apnea, unspecified; E66.9 Obesity, unspecified; M19.90 Unspecified osteoarthritis, unspecified site; F32.9 Major depressive disorder, single episode, unspecified; Z79.899 Other long term (current) drug therapy; Z98.890 Other specified postprocedural states; Z88.6 Allergy status to analgesic agent
CPT/HCPCS: 43235; J2704